=== PATIENT | male | born 1980 | race Caucasian/White ===

== ENCOUNTER 2016-10-28 01:33 | Emergency (ER) | payer OTHER ==
[~2016-10-28] VITALS: Ht 185.4 cm; Wt 90.7 kg
--- NOTE | 2016-10-28 01:55 | ED PSYCHIATRIC COMPLAINT ---
See Addendum History of Present Illness General Chief Complaint: Psychiatric Related Complaint Stated Complaint: +SI Source: patient Exam Limitations: no limitations Vital Signs & Intake/Output Vital Signs & Intake/Output Vital Signs Date Time Temp Pulse Resp B/P Pulse O2 O2 Flow FiO2 Ox Delivery Rate 10/28 1639 97.0 74 18 114/56 95 Room Air 10/28 1347 98.2 64 18 132/60 97 Room Air 10/28 1011 97.3 67 18 133/58 97 Room Air 10/28 0606 96.9 76 20 108/57 95 Room Air 10/28 0215 Room Air 10/28 0200 98.2 84 18 131/71 97 Room Air Allergies Coded Allergies: No Known Allergies (10/28/16) Reconcile Medications Buspirone HCl 15 MG TABLET 1 TAB PO BID ANXIETY (Reported) Disulfiram (Antabuse) 250 MG TABLET 2 TAB PO QAM ETOH (Reported) Paroxetine HCl (Paxil) 40 MG TABLET 1 TAB PO DAILY ANTIDEPRESSANT (Reported) Triage Nurses Notes Reviewed? yes Onset: Gradual Duration: week(s):, waxing and waning Timing: recent history Severity: moderate, severe Associated Symptoms: anxiety HPI: 36-year-old gentleman history of depression presents with suicidality. He states that he is hopeless and no longer wants to live. He states that he has been doing various drugs over the past several weeks. He does not have a plan. He denies seizures hallucinations or homicidality. He states that he is otherwise well. (MAGDALENA DALEY,LAURA Bae) Past History Travel History Traveled to [place] past 21 day No Medical History Any Pertinent Medical History? see below for history Psychiatric: depression Surgical History Surgical History: none Family History Hx Contributory? No (LAURA NICHOLS MD) Review of Systems Review of Systems Constitutional: Reports: no symptoms. EENTM: Reports: no symptoms. Respiratory: Reports: no symptoms. Cardiovascular: Reports: no symptoms. GI: Reports: no symptoms. Genitourinary: Reports: no symptoms. Musculoskeletal: Reports: no symptoms. Skin: Reports: no symptoms. Neurological/Psychological: Reports: no symptoms. Hematologic/Endocrine: Reports: no symptoms. Immunologic/Allergic: Reports: no symptoms. All Other Systems: Reviewed and Negative (LAURA NICHOLS MD) Physical Exam Physical Exam General Appearance: well developed/nourished, mild distress Head: atraumatic Eyes: Bilateral: PERRL, EOMI. Ears, Nose, Throat: normal pharynx, normal ENT inspection, hearing grossly normal Neck: normal inspection, supple Respiratory: normal breath sounds Cardiovascular: regular rate/rhythm Gastrointestinal: soft, non-tender Extremities: normal range of motion Neurological/Psychiatric: no motor/sensory deficits, awake, anxious, flat Appearance/Memory/Insight: appropriate insight, disheveled Behavoir/Eye Contact/Speech: avoids eye contact, belligerent, cooperative Thoughts/Hallucinations: normal thought pattern, no apparent hallucination Skin: intact, normal color, warm/dry SAD PERSONS SAD PERSONS Response Value Male Sex? yes 1 Depression/Hopelessness? yes 2 Excessive Ethanol/Drug Use? yes 1 Rational Thinking Loss? yes 2 Single//? yes 1 Social Support? has no support 1 Total 8 SAD PERSONS Done? yes (MAGDALENA DALEY,LAURA Bae) Progress Differential Diagnosis: impression versus hallucination versus drug abuse versus other. Plan of Care: Orders Procedure Date/time Status Regular Diet 10/28 B Active Admit to inpatient psych 10/28 181 Active EKG 10/28 043 Active Continuous Observation Monitor 10/28 154 Active URINE DRUG SCREEN FOR ER ONLY 10/28 154 Complete ETHANOL 10/28 154 Complete COMPREHENSIVE METABOLIC PANEL 10/28 154 Complete CBC WITHOUT DIFFERENTIAL 10/28 154 Complete ED CRISIS PSYCH CONSULT 10/28 154 Active Laboratory Tests 10/28/16 0209: Urine Opiates Screen < 100.00, Methadone Screen > 735 H, Barbiturate Screen < 60, Ur Phencyclidine Scrn < 6.00, Amphetamines Screen < 100, U Benzodiazepines Scrn > 800 H, Urine Cocaine Screen > 1000 H, Urine Cannabis Screen < 5.00 10/28/16 0204: Anion Gap 11, Estimated GFR > 60, BUN/Creatinine Ratio 12.5, Glucose 82, Calcium 9.3, Total Bilirubin 0.6, AST 41, ALT 60, Alkaline Phosphatase 86, Total Protein 7.4, Albumin 4.4, Globulin 3.0, Albumin/Globulin Ratio 1.5, CBC w Diff NO MAN DIFF REQ, RBC 4.14 L, MCV 92.6, MCH 31.2 H, RDW 13.6, MPV 6.9 L, Gran % 55.8, Lymphocytes % 26.2, Monocytes % 15.0 H, Eosinophils % 2.3, Basophils % 0.7, Absolute Granulocytes 4.3, Absolute Lymphocytes 2.0, Absolute Monocytes 1.1 H, Absolute Eosinophils 0.2, Absolute Basophils 0.1, PUBS MCHC 33.7, Serum Alcohol 71.0 Initial ED EKG: normal axis, normal intervals, normal p-waves, normal QRS complex, normal sinus rhythm Hand-Off Endorsed To: YUVAL HEART MD Endorsed Time: 0700 Pending: consult (LAURA NICHOLS MD) Departure Departure Disposition: STILL A PATIENT Condition: Stable Clinical Impression Primary Impression: Polysubstance abuse Secondary Impressions: Depression Referrals: PATIENT HAS NO PRIMARY CARE DR (PCP/Family) Departure Forms: Customer Survey General Discharge Information (MAGDALENA DALEY,LAURA Bae) Psych Admission Note Psychiatric Admission: I have seen and evaluated GABRIELLE LOOMIS. I have also reviewed all the pertinent lab results and diagnostic results. GABRIELLE LOOMIS will be admitted to our inpatient Psychiatric unit for treatment and care. (YUVAL HEART MD)
[2016-10-28 02:12] LABS: ABSOLUTE BASOPHIL COUNT 0.1 /CUMM (0.0-0.2); ABSOLUTE EOSINOPHIL COUNT 0.2 /CUMM (0.0-0.7); ABSOLUTE GRANULOCYTE CT 4.3 /CUMM (1.4-6.5); ABSOLUTE MONOCYTE COUNT 1.1 /CUMM (0.10-0.60); BASOPHIL % 0.7 % (0.0-2.0); EOSINOPHIL % 2.3 % (0-5); GRANULOCYTE % 55.8 % (42.2-75.2); HEMATOCRIT 38.4 % (42-52); MEAN CORPUSCULAR HGB 31.2 PG (27.0-31.0); MEAN CORPUSCULAR HGB CONC 33.7 G/DL (33.0-37.0); MEAN CORPUSCULAR VOLUME 92.6 FL (80.0-94.0); MEAN PLATELET VOLUME 6.9 FL (7.4-10.4); PLATELET COUNT 265 /CUMM (130-400); RBC DISTRIBUTION WIDTH 13.6 % (11.5-14.5); RED BLOOD CELL CT 4.14 /CUMM (4.70-6.10); WHITE BLOOD CELL COUNT 7.6 /CUMM (4.8-10.8)
[2016-10-28] MEDS ORDERED: BUSPIRONE HCL15 M1 PO (02:42)
[2016-10-28] MEDS ORDERED: PAXIL40 M1 PO (02:44)
[2016-10-28] MEDS ORDERED: ANTABUSE250 M1 PO (02:44)
--- NOTE | 2016-10-28 17:42 | ED PSYCH CRISIS CONSULTATION ---
Crisis Consult Basic Assessment Date of Consult: 10/28/16 Responsible Person/Accompanied By: Patient self presented to ED Insurance Authorization: Insurance #1: Insurance name: ELLI CAMARENA Phone number: Policy number: [id number] Group number: Authorization number: ED Provider: Patient's ED Provider: MAGDALENA DALEY,VAN Bae Primary Care Physician: Patient's PCP: PATIENT HAS NO PRIMARY CARE DR PCP's Phone Number: Current Psychiatrist: [facility] Chief Complaint: Psychiatric Related Complaint Patient's Quote: " I need help." Present Illness: Patient is a 36 year old single male who self presented to ED due to thoughts of hurting himself. Patient initally reported suicidal ideation due to feeling hopeless about his current situation. Patient is currently homeless and has been using alcohol, cocaine and PCP daily since discharging from [facility] 15 days ago. Patient recanted his suicidal comments after he was made aware that his girlfriend, who is also in the ED, was being discharged. Patient stated that he knew what to say to get admitted and really has no plans to hurt himself but wants to stop using drugs. He reports that he is safe to discharge and wants to be with his girlfriend at this time. He reports one psych hospitalization at [facility] in 2003. He reports being prescribed Paxil and Buspar currently from [facility] when he was residing at [facility]. 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 Patient was notified that we would be contacting [facility] to inform them of his UDS results in ED. Patient's Address: [address] [place] [address] Other Phone Number: Who Do You Live With? Patient/Self Family/Informants Interviewed: no family/collateral ID'd Allergies - Coded Allergies: No Known Allergies (10/28/16) Current Medications - Scheduled Medications Buspirone HCl 15 MG TABLET 1 TAB PO BID ANXIETY (Reported) Entered as Reported by CHRISTIAN REYNOLDS on 10/28/16 0242 Disulfiram (Antabuse) 250 MG TABLET 2 TAB PO QAM ETOH (Reported) Entered as Reported by CHRISTIAN REYNOLDS on 10/28/16243 Paroxetine HCl (Paxil) 40 MG TABLET 1 TAB PO DAILY ANTIDEPRESSANT (Reported) Entered as Reported by CHRISTIAN REYNOLDS on 10/28/16243 Laboratory Results: Laboratory Tests 10/28/16 0209: Urine Opiates Screen < 100.00, Methadone Screen > 735 H, Barbiturate Screen < 60, Ur Phencyclidine Scrn < 6.00, Amphetamines Screen < 100, U Benzodiazepines Scrn > 800 H, Urine Cocaine Screen > 1000 H, Urine Cannabis Screen < 5.00 10/28/16203: Anion Gap 11, Estimated GFR > 60, BUN/Creatinine Ratio 12.5, Glucose 82, Calcium 9.3, Total Bilirubin 0.6, AST 41, ALT 60, Alkaline Phosphatase 86, Total Protein 7.4, Albumin 4.4, Globulin 3.0, Albumin/Globulin Ratio 1.5, CBC w Diff NO MAN DIFF REQ, RBC 4.14 L, MCV 92.6, MCH 31.2 H, RDW 13.6, MPV 6.9 L, Gran % 55.8, Lymphocytes % 26.2, Monocytes % 15.0 H, Eosinophils % 2.3, Basophils % 0.7, Absolute Granulocytes 4.3, Absolute Lymphocytes 2.0, Absolute Monocytes 1.1 H, Absolute Eosinophils 0.2, Absolute Basophils 0.1, PUBS MCHC 33.7, Serum Alcohol 71.0 Past History Past Medical History Neurological: NONE EENT: NONE Cardiovascular: NONE Respiratory: NONE Gastrointestinal: NONE Hepatic: NONE Renal: NONE Musculoskeletal: NONE Psychiatric: depression Endocrine: NONE Blood Disorders: NONE Cancer(s): NONE RN DELIVERY/Reproductive: NONE Past Surgical History Surgical History: 1 Psychosocial History Strengths/Capabilities: n/a Physical Limitations (Interventions): n/a Psychiatric Treatment History Psych Treatment Psychiatric Treatment Yes Inpatient Treatment Yes Outpatient Treatment Yes Location of Treatment [facility] Reason for Treatment Bipolar d/o Dates of Treatment 2003 Response to Treatment Poor Diagnosis by History: Bipolar d/o Substance Use/Abuse History Drug Use/Abuse 1 Substances Used/Abused Yes Substance Used/Abused Alcohol First Use age 14 Last Used Yesterday How much used/taken 24 beers/day How often daily For how long 15 days Route of use oral Drug Use/Abuse 2 Substances Used/Abused Yes Substance Used/Abused Crack Cocaine First Use unknown Last Used yesterday How much used/taken $100/day How often daily For how long past 15 days Route of use inhalation Drug Use/Abuse 3 Substances Used/Abused Yes Substance Used/Abused Other (list in comments) (PCP) First Use unknown Last Used unknown How much used/taken $20 every 3 days How often every 3 days For how long 15 days Route of use smoke Substance Abuse Treatment Substance Abuse Treatment Past Substance Abuse [place] Yes Inpatient Treatment Yes Outpatient Treatment Yes Location of Treatment Unknown, did not clarify Reason for Treatment polysubstance abuse Dates of Treatment unknown Response to Treatment poor Current Mental Status Mental Status Orientation: Person, Place, Situation Affect: Anxious, Angry, Sad Speech: WNL Neuro-vegetative: Appetite Decreased, Concentration Poor, Energy Decreased, Loss of Interest, Sleep Disturbance Appearance Appearance- Dress/Hygiene: In hospital issued scrubs, easy to engage in conversation, normal eye contact Behaviors Thought Process: WNL Thought Content: WNL Memory: WNL Insight: Poor SI/HI Risk Assessment Past Suicidal Ideation/Attempts Yes Current Suicidal Ideation/Att No Past Homicidal Ideation/Att: No Current Homicidal Ideation/Attempts No Degree of Intent: Thoughts/No Intent Gravely Disabled: Poor Impulse Control, Poor Judgment Risk Factors: high anxiety/distress, SA/MH hospitalized, substance abuse, poor impulse control, male Lethality Ratin PTSD Checklist PTSD Done? patient declined ED Management Sitter: Yes Restraints: No DSM5/PS Stressors/Medical Prob Diagnosis' (DSM 5, Stressors, Medical): Unspecified bipolar d/o F31.9; alcohol use d/o, severe F10.20; stimulant use d/o , severe F14.20; opioid use d/o, severe, on maintenance F11.20 Current GAF: 40 Departure Disposition Psych Medical Clearance Date: 10/28/16 Medically Cleared at: 1710 Time Started: 1709 Time Ended: 1814 Psychiatrist Consulted: Van Prado MD Date Disposition Established: 10/28/16 Time Disposition Established: 1834 Plan for Disposition - Modality: Residential rehab Facility: Patient to Arrange Rationale for Disposition: Denies suicidial ideation, initially presented because wanted to be admitted for substance abuse treatment and to satisfy legal requirements. Patient adamant about leaving and being with his girlfriend, able to contract for safety and plans to follow up with residential rehab. Referrals PATIENT HAS NO PRIMARY CARE DR (PCP/Family)
[2016-10-28 18:40] VITALS: BP 122/84
== END 2016-10-28 18:42 ==
LOC: ERH 01:33
PROVIDERS: Pediatrics
DX: F19.10 Other psychoactive substance abuse, uncomplicated (principal); F32.9 Major depressive disorder, single episode, unspecified
CPT/HCPCS: 80307; 93005; 93010; G0463; G0480; J1200; J1630

== ENCOUNTER 2016-11-26 02:03 | Inpatient (IN) | payer OTHER ==
[~2016-11-26] VITALS: Ht 185.4 cm; Wt 95.3 kg
[~2016-11-26 02:03] MED LIST: ANTABUSE250 M1 PO; BUSPIRONE HCL15 M1 PO; PAXIL40 M1 PO
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
[2016-11-26 02:58] LABS: ABSOLUTE BASOPHIL COUNT 0.2 /CUMM (0.0-0.2); ABSOLUTE EOSINOPHIL COUNT 0.3 /CUMM (0.0-0.7); ABSOLUTE GRANULOCYTE CT 4.6 /CUMM (1.4-6.5); ABSOLUTE LYMPH COUNT 3.8 /CUMM (1.2-3.4); ABSOLUTE MONOCYTE COUNT 0.5 /CUMM (0.10-0.60); BASOPHIL % 1.9 % (0.0-2.0); EOSINOPHIL % 3.3 % (0-5); HEMATOCRIT 43.3 % (42-52); MEAN CORPUSCULAR HGB 31.4 PG (27.0-31.0); MEAN CORPUSCULAR HGB CONC 33.9 G/DL (33.0-37.0); MEAN CORPUSCULAR VOLUME 92.8 FL (80.0-94.0); MEAN PLATELET VOLUME 7.6 FL (7.4-10.4); PLATELET COUNT 301 /CUMM (130-400); RED BLOOD CELL CT 4.67 /CUMM (4.70-6.10); WHITE BLOOD CELL COUNT 9.5 /CUMM (4.8-10.8)
--- NOTE | 2016-11-26 14:34 | ED PSYCH CRISIS CONSULTATION ---
Crisis Consult Basic Assessment Date of Consult: 11/26/16 Responsible Person/Accompanied By: Self Insurance Authorization: Insurance #1: Insurance name: ELLI CAMARENA Phone number: Policy number: [id number] Group number: Authorization number: ED Provider: Patient's ED Provider: JORGE ALBERTO JOSUE MD Primary Care Physician: Patient's PCP: PATIENT HAS NO PRIMARY CARE DR PCP's Phone Number: Current Psychiatrist: No current-Last prescribed meds by [place] Chief Complaint: Psychiatric Related Complaint Patient's Quote: "I am extremely suicidal every day thepast month." Present Illness: The patient is a 36 year old single male presenting to the ED with depression and sucidal ideation with a plan. The patient presented as tired, withdrawn, depressed, hopeless and helpless. The patient reports having suicidal ideation with a plan of "driving a car off the same bridge my friend did that committed suicide." The patient reports a prior suicide attempt when he was 17 years old by taking a bottle of aspirin. The patient reports depressed mood, regular sleep, decreased appetite (1 meal per day) and low motivation and energy. 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 The patient denies current homicidal ideation , auditory hallucinations and visual hallucinations. The patient states that he does become violent when he uses PCP and was arrested for assaulting a hospital security vehicle patrol officer when under the influence of PCP approximately two weeks ago. The patient reports his triggers as being two of his best friends committing suicide the last couple of years, his father passing away two days before this past Thanksgiving and being homeless as he was recently evicted from his sober house yesterday for relapsing. The patient reports a prior inpatient psychiatric hospitalization at [facility] in 2001 for depression and suicidal ideation. He reports a long history of polysubstance abuse with current regular use of alcohol, cocaine and benzodiazepines. He reports recently being discharged from [facility] for alcohol, benzodiazepine and methadone detox a week ago and relapsing shortly thereafter. The patient is at acute risk to self requiring inpatient hospitalization. This report prepared by AIMEE T[employer]ver[employer] Glazing Machine Operator and signed off by Kathleen Archuleta Patient's Address: [address] [place] [address] Other Phone Number: Who Do You Live With? Patient/Self Family/Informants Interviewed: no family/collateral ID'd Allergies - Coded Allergies: meperidine (From DEMEROL) (Mild, FLUSHING 11/26/16) Current Medications - Scheduled Medications Buspirone HCl 15 MG TABLET 1 TAB PO BID ANXIETY (Reported) Entered as Reported by CHRISTIAN REYNOLDS on 10/28/16 0242 Disulfiram (Antabuse) 250 MG TABLET 2 TAB PO QAM ETOH (Reported) Entered as Reported by CHRISTIAN REYNOLDS on 10/28/16 0244 Paroxetine HCl (Paxil) 40 MG TABLET 1 TAB PO DAILY ANTIDEPRESSANT (Reported) Entered as Reported by CHRISTIAN REYNOLDS on 10/28/16 0244 Laboratory Results: Laboratory Tests 11/26/16 0309: Urine Opiates Screen < 100.00, Methadone Screen > 735 H, Barbiturate Screen 64, Ur Phencyclidine Scrn < 6.00, Amphetamines Screen 338, U Benzodiazepines Scrn > 800 H, Urine Cocaine Screen > 1000 H, Urine Cannabis Screen < 5.00 11/26/16 0246: Anion Gap 8, Estimated GFR > 60, BUN/Creatinine Ratio 11.3, Glucose 106 H, Calcium 9.8, Total Bilirubin 0.6, AST 73 H, ALT 48, Alkaline Phosphatase 71, Total Protein 8.0, Albumin 4.9, Globulin 3.1, Albumin/Globulin Ratio 1.6, CBC w Diff MAN DIFF ORDERED, RBC 4.67 L, MCV 92.8, MCH 31.4 H, RDW 15.0 H, MPV 7.6, Gran % 49.0, Lymphocytes % 40.5, Monocytes % 5.3, Eosinophils % 3.3, Basophils % 1.9, Absolute Granulocytes 4.6, Segmented Neutrophils 45, Absolute Lymphocytes 3.8 H, Lymphocytes 50, Monocytes 2, Absolute Monocytes 0.5, Eosinophils 3, Absolute Eosinophils 0.3, Absolute Basophils 0.2, Platelet Estimate ADEQUATE, Polychromasia 1+, Ovalocytes FEW, PUBS MCHC 33.9, Fld Total RBCs Counted 100, Serum Alcohol 164.0 Past History Past Medical History Neurological: NONE EENT: NONE Cardiovascular: NONE Respiratory: NONE Gastrointestinal: NONE Hepatic: NONE Renal: NONE Musculoskeletal: NONE Psychiatric: depression Endocrine: NONE Blood Disorders: NONE Cancer(s): NONE FIELD CROP GROWER/Reproductive: NONE Past Surgical History Surgical History: 1 Psychosocial History Strengths/Capabilities: n/a Physical Limitations (Interventions): n/a Psychiatric Treatment History Psych Treatment Psychiatric Treatment Yes Inpatient Treatment Yes Outpatient Treatment Yes [facility] Reason for Treatment Depression, polysubstance abuse Dates of Treatment [facility]-2001; [facility]-1 month ago Response to Treatment Relapse Diagnosis by History: Depression, polysubstance abuse Substance Use/Abuse History Drug Use/Abuse 1 Substances Used/Abused Yes Substance Used/Abused Alcohol First Use 14 years old Last Used today How much used/taken 15 beers How often daily For how long Drinking alcohol since age 14 Route of use Oral Drug Use/Abuse 2 Substances Used/Abused Yes Substance Used/Abused Crack Cocaine First Use 19 years old Last Used Yesterday How much used/taken $100 How often Every other day For how long Since age 19 Route of use Inhale (Smoke) Drug Use/Abuse 3 Substances Used/Abused Yes Substance Used/Abused Benzodiazepines First Use 29 years old Last Used Today How much used/taken 6mg How often daily For how long since age 29 Route of use Oral Substance Abuse Treatment Substance Abuse Treatment Past Substance Abuse TX Yes Inpatient Treatment Yes Outpatient Treatment Yes Location of Treatment [facility] & [facility] Reason for Treatment Detox Dates of Treatment [facility]-1 month ago; [facility]-1 week ago Response to Treatment Patient has relapsed with alcohol, cocaine and benzodiazepines. Patient reports occassional use of PCP which cuases him to be violent. Comments: None Current Mental Status Mental Status Orientation: Person, Place, Situation Affect: Depressed, Flat, Hopeless Speech: WNL Neuro-vegetative: Appetite Decreased, Energy Decreased, Helpless, Loss of Interest Appearance Appearance- Dress/Hygiene: Patient was dressed in hospital scrubs and disheveled. Patient was tired during course of the assessment finding it difficult to keep his eyes open at times. Patient had two scratches on his cheek. Behaviors Thought Process: WNL Thought Content: WNL Memory: WNL Insight: Poor SI/HI Risk Assessment Past Suicidal Ideation/Attempts Yes (Reports SI daily past month ) Current Suicidal Ideation/Att Yes (Pt. repots current SI w/plan) Past Homicidal Ideation/Att: Yes (Pt. reports violent w/PCP) Current Homicidal Ideation/Attempts No (Pt. denies current HI) Degree of Intent: Plan, States Intent, Pt. reports current SI with plan to drive car off of same bridge his friend did who committed suicide Danger To: Self Gravely Disabled: Poor Impulse Control, Poor Judgment Risk Factors: high anxiety/distress Lethality Ratin PTSD Checklist PTSD Done? patient declined (Pt. denies hx of trauma) ED Management Sitter: Yes Restraints: No DSM5/PS Stressors/Medical Prob Diagnosis' (DSM 5, Stressors, Medical): F32.9 Unspecified Depressive Disorder F11.20 Opioid Use Disorder, Severe F10.20 Alcohol use disorder, Severe F13.20 Sedative, Hypnotic or Anxiolytic Use Disorder, Severe F14.20 Stimulant Use Disorder, Cocaine, severe Current GAF: 25 Comments: None Departure Disposition Psych Medical Clearance Date: 11/26/16 Medically Cleared at: 1410 Time Started: 1410 Time Ended: 1510 Psychiatrist Consulted: Michelle DALEY,Edward Date Disposition Established: 11/26/16 Time Disposition Established: 1529 Plan for Disposition - Modality: Inpatient Psychiatry Facility: [facility] Rationale for Disposition: Patient reports current depression and suicidal ideation, with plan to drive a car off a bridge. The patient has history of polysubstance abuse with recent relapse. Dr. Martinez finds the patient is at acute risk to self and requires inpatient admission for suicidal ideation. Type of IP Admission: Voluntary Additional Instructions: None Referrals PATIENT HAS NO PRIMARY CARE DR (PCP/Family)
--- NOTE | 2016-11-26 16:06 | IP CRISIS DIAG ASSESS PSYCH ---
Diagnostic Assessment Basic Assessment Insurance Authorization: Insurance #1: Insurance name: ELLI CAMARENA Policy number: [id number] Authorization number: [id number] Spoke kezia Dockery - 4 days 11/26/16 to 11/29/16 with review due on 11/30/16 Primary Care Physician: Patient's PCP: PATIENT HAS NO PRIMARY CARE DR PCP's Phone Number: Patient's Quote: "I am extremely suicidal every day thepast month." Present Illness: The patient is a 36 year old single male presenting to the ED with depression and suicidal ideation with a plan. The patient presented as tired, withdrawn, depressed, hopeless and helpless. The patient reports having suicidal ideation with a plan of "driving a car off the same bridge my friend did that committed suicide." The patient reports a prior suicide attempt when he was 17 years old by taking a bottle of aspirin. The patient reports depressed mood, regular sleep, decreased appetite (1 meal per day) and low motivation and energy. 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 The patient denies current homicidal ideation , auditory hallucinations and visual hallucinations. The patient states that he does become violent when he uses PCP and was arrested for assaulting a hospital retail security professional when under the influence of PCP approximately two weeks ago. The patient reports his triggers as being two of his best friends committing suicide the last couple of years, his father passing away two days before this past Thanksgiving and being homeless as he was recently evicted from his sober house yesterday for relapsing. The patient reports a prior inpatient psychiatric hospitalization at [facility] in 2001 for depression and suicidal ideation. He reports a long history of polysubstance abuse with current regular use of alcohol, cocaine and benzodiazepines. He reports recently being discharged from [facility] for alcohol, benzodiazepine and methadone detox a week ago and relapsing shortly thereafter. The patient is at acute risk to self requiring inpatient hospitalization. This report prepared by AIMEE [employer] Consult[employer] Analyst and signed off by Kathleen Archuleta Patient's Address: [address] [place] [address] Other Phone Number: Who Do You Live With? Patient/Self Feel Safe Where You Live? No (Pt. recently homeless) Feel Safe in Your Relationship Yes If No, Please Elaborate: N/A Marital Status: single Do You Have Children? No Ages? N/A Primary Language? Czech Language(s) Spoken At Home: Czech Family/Informants Interviewed: pt unable to participate (Pt. denies any collateral), no family/collateral ID'd Allergies - Coded Allergies: meperidine (From DEMEROL) (Mild, FLUSHING 11/26/16) Current Medications - Scheduled Medications Buspirone HCl 15 MG TABLET 1 TAB PO BID ANXIETY (Reported) Entered as Reported by CHRISTIAN REYNOLDS on 10/28/16 0242 Disulfiram (Antabuse) 250 MG TABLET 2 TAB PO QAM ETOH (Reported) Entered as Reported by CHRISTIAN REYNOLDS on 10/28/16 0244 Paroxetine HCl (Paxil) 40 MG TABLET 1 TAB PO DAILY ANTIDEPRESSANT (Reported) Entered as Reported by CHRISTIAN REYNOLDS on 10/28/16 0244 Consequences of Psych Med Use: Patient last prescribed Paxil & Buspar by [facility] a month ago and running out of meds. Patient reports current SI and worsening depression. Comment: None Lab Results: Laboratory Tests 11/26/16 0309: Urine Opiates Screen < 100.00, Methadone Screen > 735 H, Barbiturate Screen 64, Ur Phencyclidine Scrn < 6.00, Amphetamines Screen 338, U Benzodiazepines Scrn > 800 H, Urine Cocaine Screen > 1000 H, Urine Cannabis Screen < 5.00 11/26/16 0246: Anion Gap 8, Estimated GFR > 60, BUN/Creatinine Ratio 11.3, Glucose 106 H, Calcium 9.8, Total Bilirubin 0.6, AST 73 H, ALT 48, Alkaline Phosphatase 71, Total Protein 8.0, Albumin 4.9, Globulin 3.1, Albumin/Globulin Ratio 1.6, CBC w Diff MAN DIFF ORDERED, RBC 4.67 L, MCV 92.8, MCH 31.4 H, RDW 15.0 H, MPV 7.6, Gran % 49.0, Lymphocytes % 40.5, Monocytes % 5.3, Eosinophils % 3.3, Basophils % 1.9, Absolute Granulocytes 4.6, Segmented Neutrophils 45, Absolute Lymphocytes 3.8 H, Lymphocytes 50, Monocytes 2, Absolute Monocytes 0.5, Eosinophils 3, Absolute Eosinophils 0.3, Absolute Basophils 0.2, Platelet Estimate ADEQUATE, Polychromasia 1+, Ovalocytes FEW, PUBS MCHC 33.9, Fld Total RBCs Counted 100, Serum Alcohol 164.0 Toxicology Screen Completed? Yes Results: positive Symptoms of Use: Patient has relapsed and reports daily use of alcohol, crack cocaine and benzodiazepines. Past History Past Surgical History Surgical History none Abuse/Trauma History Trauma History/Current Trauma: Denies History of Trauma/Abuse Treatment? No Abuse/Trauma Treatment: n/A Legal History Current Legal Status: on probation, Violation of probation-next court date Have you ever been arrested? 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 Physical Limitations (Interventions): None Psychiatric Treatment History Psych Treatment Psychiatric Treatment Yes Inpatient Treatment Yes Outpatient Treatment Yes Location of Treatment [facility] Reason for Treatment Depression, polysubstance abuse Dates of Treatment [facility]-2001; [facility]-1 month ago Response to Treatment Relapse Diagnosis by History: Depression, polysubstance abuse Risk Factors: high anxiety/distress, history of Violence, SA/ hospitalized, substance abuse, isolate/no social support, poor impulse control, lack of outcome concern, lives alone, male, limited support Substance Use/Abuse History Drug Use/Abuse minimum 12mo Hx 1 Substances Used/Abused Yes Substance Used/Abused Benzodiazepines First Use 29 years old Last Used Today How much used/taken 6mg How often daily For how long since age 29 Route of use Oral Drug Use/Abuse minimum 12mo Hx 2 Substances Used/Abused Yes Substance Used/Abused Alcohol First Use 14 years old Last Used Today How much used/taken 15 beers How often Daily For how long "On and off" since age 14 Route of use Oral Drug Use/Abuse minimum 12mo Hx 3 Substances Used/Abused Yes Substance Used/Abused Crack Cocaine First Use 19 years old Last Used Yesterday How much used/taken $100 worth How often every other day For how long Since age 19 Route of use Inhale Substance Abuse Treatment Substance Abuse Treatment Past Substance Abuse TX Yes Inpatient Treatment Yes Outpatient Treatment Yes Location of Treatment [facility] Reason for Treatment Detox Dates of Treatment [facility] [place]-1 month ago; [facility]-1 week ago Response to Treatment Patient has relapsed with alcohol, cocaine and benzodiazepines. Patient reports occassional use of PCP which causes him to be violent. Comments: None Sexual History Sexually Active Yes # of partners 1 Sexual Orientation Heterosexual Use of Protection No Sexual Concerns: None noted Education History Highest Level of Education: high school/GED Preferred Learning Style: visual Current Mental Status Mental Status Orientation: Person, Place, Situation Affect: Depressed, Flat, Hopeless Speech: WNL Neuro-vegetative: Appetite Decreased, Energy Decreased, Helpless, Loss of Interest Appearance Appearance- Dress/Hygiene: Patient was dressed in hospital scrubs and disheveled. Patient was tired during course of the assessment finding it difficult to keep his eyes open at times. Patient had two scratches on his cheek. Behaviors Thought Process: WNL Thought Content: WNL Memory: WNL Insight: Poor SI/HI Risk Assessment - Minimum 6mo History- Past Suicidal Ideation/Attempts Yes (Reports SI daily past month ) Current Suicidal Ideation/Att Yes (Pt. reports current SI w/plan) Past Homicidal Ideation/Att: Yes (Pt. reports violent w/PCP) Current Homicidal Ideation/Attempts No (Pt. denies current HI) Degree of Intent: Plan, States Intent, Pt. reports current SI with plan to drive car off of same bridge his friend did who committed suicide Danger To: Self Gravely Disabled: Poor Impulse Control, Poor Judgment Risk Factors: high anxiety/distress Lethality Ratin Needs/Init TX Plan/Goals: Patient needs medication evaluation to stabilize mood, depression and suicidal ideation. Patient needs medication management to manage withdrawal symptoms from polysubstance abuse. Comprehensive psychiatric assessment, psychosocial assessment, individual and group therapy, and family meeting if possible. AUDIT-C Questionnaire: AUDIT-C Questionnaire: Response Value ETOH use in the past year 4 or more per week 4 # drinks typical/day 10 or more 4 6 or > drinks per occasion Daily/Almost Daily 4 Total 12 DSM5/PS Stressors/Medical Prob Diagnosis' (DSM 5, Stressors, Medical): F32.9 Unspecified Depressive Disorder F11.20 Opioid Use Disorder, Severe F10.20 Alcohol use disorder, Severe F13.20 Sedative, Hypnotic or Anxiolytic Use Disorder, Severe F14.20 Stimulant Use Disorder, Cocaine, severe Current GAF: 25 Comments: None
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
[2016-11-26] MEDS ORDERED: METHADONE HCL10 M1 PO (19:35)
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
[2016-11-27 07:57] VITALS: BP 120/73
[2016-11-27 07:58] VITALS: BP 120/73
[2016-11-27 12:37] VITALS: BP 111/62
[2016-11-27 12:44] VITALS: BP 111/62
--- NOTE | 2016-11-27 17:55 | CPS MD/APRN INITIAL ASSE PSYCH ---
Psychiatric Admission Equity Trader's Note Reviewed: Yes Patient Seen and Examined: Yes Identifying Information: 36-year-old, unemployed, on domiciled man with history of cocaine, benzodiazepine, opiate use disorders as well as unspecified mood disorder Chief Complaint: "I gotta get out of here " Reaction to Hospitalization: Initially accepting and asking for hospitalization. Today asks for discharge History of Present Illness Onset of Illness: Long-standing history of chronic substance abuse and cooccurring mood problems Circumstances Leading to Admission: Loss of housing, worsening mood, relapse on substances, suicidal ideation, Problem(s) Justifying Need for Admission: Worsening mood, suicidal ideation in context of substance relapse Past Psychiatric History Past Diagnosis(es)- if any: Unspecified depressive disorder Cocaine, benzodiazepine, opiate use disorders Past Precipitating Factors- if any: Psychosocial stressors, substance use - Include inpatient and outpatient treatment Treatment History: Inpatient and outpatient treatment. [facility] inpatient treatment 2001. Substance use treatment at [facility]. History of Suicide Attempts or Gestures Yes, by pill overdose Substance Abuse History: Chronic use of cocaine, benzodiazepines, opiates. Currently on methadone. Recently detoxed from benzodiazepines at [facility] with immediate relapse upon discharge. 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 Legal: Yes. Currently on probation, upcoming court date for violation of probation Healthly Behaviors Screening Tobacco Screening Tobacco Use from ED Docu: Current Daily Use Daily Tobacco Use Amount/Type: => 5 Cigarettes daily - If tobacco counseling indicated - the following topics are required. - #1 Recognizing dangerous situations. - #2 Coping Skills. - #3 Basic information about quitting. Status of Tobacco Cessation Counseling: #1, #2 AND #3 Completed Cessation Med Status: Nicotine Patch Ordered Alcohol Screening - ETOH screen POS if BAL >=80 or Audit-C>= M4/F3 Audit-C Score from Diag Assess: 12 Blood Alcohol Level: Laboratory Tests 11/26 0246 Toxicology Serum Alcohol (<10 MG/DL) 164.0 Alcohol Use Screening Results: Pos per Audit C &/or BAL - If ETOH counseling indicated - the following topics are required. - #1 Express concern about the patient's - drinking at unhealthy levels, include informing - of national norms for moderate drinking: - men <= 14 drinks/week, max 4 drinks/occasion - women <= 7 drinks/week, max 3 drinks/occasion - #2 Providing feedback, including linking alcohol to - negative physical effects (liver injury, hypertension) - negative emotional effects (relationship problems and - depression) - negative occupational consequences (reduced work - performance) - #3 Advising the patient to abstain from alcohol or - to drink below national norms for moderate drinking - (as listed above). Status of ETOH Use Counseling: #1, #2 AND #3 Completed. Metabolic Screening - Screen if on a Neuroleptic Medication - Metabolic screening should include: - Blood Pressure, BMI, Glucose or Hgb A1c, & a - Lipid profile from within the past 365 days. Metabolic Screening () Not Applicable, patient not on a neuroleptic. Patient is not chronically on a neuroleptic. He is currently on an as needed order for neuroleptic however has not required this medication. Exam and Plan Mental Status Examination Ambulation Status: Stable Appearance: Disheveled Attitude towards examiner: Guarded, irritable Psychomotor activity: Positive psychomotor agitation Behavior: Within fair behavioral control Quality of speech: Within normal limits Affect: Constricted, irritable, labile Mood: "Bad " Suicidal Ideation: Denies currently Homicidal Ideation: Denies Hallucinations: Denies Paranoid/Delusional Material: Denies Difficulties with thought organization: None Insight: Limited Judgment: Limited Orientation: Alert, oriented to person place time situation Cognition: Grossly intact Memory Function: Intact Estimate of intellectual functioning: Average to below average Assets/Strengths Patient Identified Assets/Strengths: Says he has some job prospects Impression/Plan Impression and Plan: 36-year-old man with chronic cocaine, benzodiazepine, opiate use disorders as well as chronic problems with mood presents with worsening depression positive SI in the context of psychosocial difficulties and immediate relapse upon detox - Include all active medical diagnosis that require tx DSM 5 Diagnosis(es): Cocaine use disorder Benzodiazepine use disorder Opiate use disorder, on methadone replacement Unspecified depressive disorder Rule out substance-induced depressive disorder - Initial Tx Plan for Active Psych & Medical Conditions Treatment Plan: Admit inpatient psychiatry 15 minute checks appropriate Continue methadone, Paxil, BuSpar Appropriate early intervention for violent behaviors As needed Zyprexa for agitation Monitor for improvement in mood - Factors that would help patient function - in a less restrictive setting. Factors: Improved mood, identification of protective factors, identification of outpatient treatment, remission of SI
[2016-11-27 20:18] VITALS: BP 112/59
[2016-11-27 20:24] VITALS: BP 112/59
[2016-11-28] VITALS (8 sets, daily range): BP systolic 120–129; BP diastolic 51–85
--- NOTE | 2016-11-28 06:47 | Admission Certification ---
Admission Certification Certification Statement - As attending physician, I certify that at the time of - admission, based on clinical presentation, severity of - symptoms, need for further diagnostic testing and - therapeutic interventions, and risk of adverse outcomes - without in-hospital treatment, in my clinical assessment, - this patient requires an acute hospital stay for a minimum - of two nights or longer. I have also considered psychsocial - factors such as support system, advanced age, financial - issues, cognitive issues, and failed out-patient treatments, - past re-admission history, safety of patient, and lack of - compliance as applicable. Specific rationale supporting this admission is: Depression, suicidal ideation.
--- NOTE | 2016-11-28 10:45 | CP SOUTH PROGRESS NOTE PSYCH ---
Psych (Inpt) Progress Note Progress Note Include the following elements, when applicable: Involvement in the active treatment of the patient with behavioral observations of the patient and the patient's response to the treatment. Review of the ongoing treatment process in the context of the treatment plan. Indication of how multi-disciplinary staff members are carrying out the treatment plan. Plans for future interventions and recommendations for revision of the treatment plan. Liaison with other physicians/providers. Progress Note: Chart reviewed, progress d/w nursing staff. Interviewed patient this morning. WAs sleeping prior. Today pleasant, says mood remains a bit down but denies SI/ HI. Denies medication side effects. Asked for seroquel for sleep last night which was effective. Vitals reviewed and wnl. No new labs today. MSE: pleasant, poorly groomed CM resting on hospital bed. Limited EC. Speech wnl. Mood "a bit better", affect constricted, non-labile, congruent. TP log/allyson. TC wnl. Denies SI/HI or AVH. Cognition grossly intact. I/J limited-fair. A/P: Mood and SI seem to be improving. Will check TSH tomorrow am. Continue present management.
[2016-11-29] VITALS (7 sets, daily range): BP systolic 119–136; BP diastolic 67–97
--- NOTE | 2016-11-29 14:01 | CP SOUTH PROGRESS NOTE PSYCH ---
Psych (Inpt) Progress Note Progress Note Include the following elements, when applicable: Involvement in the active treatment of the patient with behavioral observations of the patient and the patient's response to the treatment. Review of the ongoing treatment process in the context of the treatment plan. Indication of how multi-disciplinary staff members are carrying out the treatment plan. Plans for future interventions and recommendations for revision of the treatment plan. Liaison with other physicians/providers. Progress Note: [I discussed this patient's progress to date, current mental status, treatment process in the context of the treatment plan, and discharge planning with staff/ team in the daily morning inpatient team meeting. I also met with the patient myself in individual session.] S: "I'm a lot calmer with Seroquel." O: Current Medications Sig/Rip Start time Last Medication Dose Route Stop Time Status Admin Acetaminophen 500 MG Q6P PRN 11/26 2030 AC PO Al Hydroxide/Mg 30 ML Q4-6 PRN PRN 11/26 2045 AC Hydroxide PO Buspirone HCl 15 MG BID 11/26 1000 AC 11/29 PO 0807 Lorazepam 1 MG Q2 HRS NEEDED PRN 11/29 0945 AC PO Lorazepam 2 MG Q2 HRS NEEDED PRN 11/29 0945 AC PO Methadone HCl 70 MG 0800 11/27 0800 AC 11/29 PO 0808 Nicotine 2 MG Q2 HRS NEEDED PRN 11/27 1700 AC 11/29 PO 1302 Nicotine 14 MG DAILY 11/27 1656 AC 11/29 TOP 0807 Paroxetine HCl 40 MG DAILY 11/26 1000 AC 11/29 PO 0807 Quetiapine Fumarate 100 MG 2200 11/29 2200 UNVr PO Quetiapine Fumarate 50 MG Q6-PRN PRN 11/29 1415 UNVr PO Quetiapine Fumarate 50 MG Q4 HRS NEEDED PRN 11/28 0930 DC 11/29 PO 1302 Quetiapine Fumarate 50 MG AT BEDTIME NEED.. 11/27 2230 DC 11/28 PO 2132 Vital Signs Date Time Temp Pulse Resp B/P Pulse O2 O2 Flow FiO2 Ox Delivery Rate 11/29 1233 74 136/80 11/29 1230 74 136/80 11/29 0801 96.7 73 119/68 11/29 0801 96.7 73 119/68 11/29 2011 98.2 83 122/61 11/29 2007 98.2 83 122/61 11/28 1638 88 120/85 11/28 1553 58 120/85 Laboratory Tests 11/29 0613 Chemistry Triglycerides (<150 mg/dL) 103 Cholesterol (< 200 MG/DL) 148 LDL Cholesterol, Calc (65 - 129 mg/dL) 86 HDL Cholesterol (40 - 60 mg/dL) 42 Cholesterol/HDL Ratio (0.00 - 4.88 %) 4 TSH &T3 &Free T4 Intrp (0.27 - 4.20 uIU/mL) 0.776 A: Chart, progress notes, VS, CIWA, labs and medication list were reviewed. Vital signs within normal limits. TSH and lipid panel resulted wnl. Patient is a 36-year-old, unemployed, male with history of cocaine, benzodiazepine, opiate use disorders, and unspecified mood disorder. He presented to ED on 11/26/16 for depression, SI, and plan. Patient's BAL was 164 on arrival. Utox was also (+) for cocaine, benzodiazepines, and methadone (which he is prescribed). Met with patient for the first time today on CPS. Presented A&Ox4, calm, cooperative. He reported presenting to ED for help getting "clean." Reported chronic polysubstance abuse and being tired of this lifestyle. He reported expressing a suicide plan while in ED "to get admitted." He denied recent suicide attempts; reported 1 prior by overdose during his teens which resulted in inpatient psych admission. He reported most recent outpatient psych treatment was at [facility] where Paxil, MMT, and Buspar were prescribed. He denied feleing hopeless, helpless, worthless, and guilty. He denied active and passive suicidal ideation, plans and intent. Denied homicidal ideation, auditory and visual hallucinations. Reported protective factors of "my girlfriend" and "I have a job waiting for me." Denied subjective reports of alcohol withdrawal. Not scoring on CIWA x last 24 hours. VSS. He reported depression of 0/10 (10 being the worst) and anxiety of 0/10 (10 being the worst) . Denied racing thoughts over stressors including upcoming court date (12/14/16) for recent legal charges (violation of probation and assault 3rd degree) since starting prn Seroquel. Reported "ok" sleep with some night time awakening. Reported stable appetite. Speech was normal in rate, tone, volume. Mood was "calmer." Affect appeared calm and constricted. No evidence of paranoia or jia delusions. Thought process was organized, goal-directed. Thought content was appropriate. Cognition was grossly intact. Patient appears goal-oriented to pursue substance abuse treatment. He denied urges/craving to use alcohol or illicits. He reported tolerating all medications well and denied untoward medication effects. Patient was agreeable to increasing Seroquel from 50mg QHS to 100mg QHS for insomnia. Will continue prn Seroquel for anxiety/racing thoughts. P: 1. Continue monitoring patient on unit for suicidal ideation and mood. 2. Increase Seroquel from 50mg QHS to 100mg QHS for insomnia. Will continue prn Seroquel for anxiety/racing thoughts. 3. Encourage participation in milieu activities. 4. Dispo planning per primary team.
--- NOTE | 2016-11-29 16:25 | SOCIAL WORKER PROG NOTE PSYCH ---
Social Work Progress Note Progress Note CORRINE met with patient for the first time today. Patient reports a desire to leave the hospital in the near future due to finding out he has a job available. Patient found sleeping in his room most of the day and not participating in groups on the unit. Patient reports that he does not have any family and is unable to have anyone come in for a family meeting. 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 He states that he does not want them to know where he is, they seem to believe he is on vacation with his girlfriend. Patient reports that he attends methadone maintenance at [facility] and plans to follow up with outpatient treatment there. Patient appears to be minimizing his current symptoms in order to d/c the hospital. It is unclear at this moment what patients alterior motives are for discharge but patient appears to not be engaged in treatment at this time and eager to discharge in near future.
[2016-11-30] VITALS (8 sets, daily range): BP systolic 124–151; BP diastolic 66–86
--- NOTE | 2016-11-30 10:12 | SOCIAL WORKER PROG NOTE PSYCH ---
Social Work Progress Note Progress Note Pt reports he is no longer suicidal, he states its time to "separate the men from the boys" in his life. He is goal oriented, and has a plan, he wants to continue with Methadone clinic and continue to taper "10mg a week" and go back on suboxone, he also states he wants to restart antabuse. He was sober for a year and this is what helped in past. He continues to believe he can return to the sober house, he believes his girlfriend is going into snf treatment and therefore will not be a barrier to his treatment. He reports getting his job back and working will help him not use/relapse and he is open to a attending meetings when he has time. He is concerned about his pending court date 12/14/16, he would like to be present for that and advocate for himself.
--- NOTE | 2016-11-30 12:09 | CP SOUTH PROGRESS NOTE PSYCH ---
Psych (Inpt) Progress Note Progress Note Include the following elements, when applicable: Involvement in the active treatment of the patient with behavioral observations of the patient and the patient's response to the treatment. Review of the ongoing treatment process in the context of the treatment plan. Indication of how multi-disciplinary staff members are carrying out the treatment plan. Plans for future interventions and recommendations for revision of the treatment plan. Liaison with other physicians/providers. Progress Note: [I discussed this patient's progress to date, current mental status, treatment process in the context of the treatment plan, and discharge planning with staff/ team in the daily morning inpatient team meeting. 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 " O: Current Medications Sig/Rip Start time Last Medication Dose Route Stop Time Status Admin Acetaminophen 500 MG Q6P PRN 11/26 2030 AC PO Al Hydroxide/Mg 30 ML Q4-6 PRN PRN 11/26 2045 AC Hydroxide PO Buspirone HCl 15 MG BID 11/26 1000 AC 11/30 PO 0804 Gabapentin 300 MG 0800,1400,11/30 1400 AC PO Gabapentin 300 MG Q8P PRN 11/29 1630 DC 11/30 PO 0846 Lorazepam 1 MG Q2 HRS NEEDED PRN 11/29 0945 AC PO Lorazepam 2 MG Q2 HRS NEEDED PRN 11/29 0945 AC PO Methadone HCl 70 MG 0800 11/27 0800 AC 11/30 PO 0804 Nicotine 2 MG .STK-MED ONE 11/29 2118 DC PO 11/29 2119 Nicotine 2 MG .STK-MED ONE 11/29 1638 DC PO 11/29 1639 Nicotine 2 MG Q2 HRS NEEDED PRN 11/27 1700 AC 11/30 PO 0936 Nicotine 14 MG DAILY 11/27 1656 AC 11/30 TOP 0806 Paroxetine HCl 40 MG DAILY 11/26 1000 AC 11/30 PO 0847 Quetiapine Fumarate 50 MG 0800,1400 11/30 0830 DC PO Quetiapine Fumarate 50 MG Q8P PRN 11/30 0830 AC PO Quetiapine Fumarate 100 MG 2200 11/29 2200 AC 11/29 PO 2122 Quetiapine Fumarate 50 MG Q6-PRN PRN 11/29 1415 DC 11/29 PO 2250 Quetiapine Fumarate 50 MG Q4 HRS NEEDED PRN 11/28 0930 DC 11/29 PO 1302 Quetiapine Fumarate 50 MG AT BEDTIME NEED.. 11/27 2230 DC 11/28 PO 2132 Vital Signs Date Time Temp Pulse Resp B/P Pulse O2 O2 Flow FiO2 Ox Delivery Rate 11/30 0752 97.4 70 124/66 11/30 0749 97.4 70 124/66 11/30 1999 97.0 64 133/69 11/29 1933 97.0 64 133/69 11/29 1606 69 126/97 11/29 1556 69 126/67 11/29 1233 74 136/80 11/29 1230 74 136/80 A: Chart, progress notes, labs, VS, CIWA scores, and medication list were reviewed. Vital signs within normal limits. Not scoring on CIWA. No new lab results today. Seroquel 50mg Q8AM and Q2PM was started as he had been utilizing 2-3 50mg prn doses over the last couple days on unit for racing thoughts/anxiety. Met with patient 1:1 this afternoon. He presented alert and oriented to person, place, time and situation. Affect appeared calm, constricted. Mood was pleasant, cooperative. Eye contact was appropriate. Speech was normal in rate, tone and volume. He reported refusing scheduled morning Seroquel due to wanting to cut down on it for unclear reasons. Denied medication side effects; instead, he requested prn Gabapentin be changed to standing as this was effective in managing anxiety. He was agreeable to continue Seroquel 50mg prn for anxiety/ racing thoughts. Thought process was organized and goal-directed. 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 Patient was offered to sign a termination of voluntary form. Reviewed form with patient, who later declined to sign. He denied passive and active suicidal ideation, plans and intent. He continued to deny having a suicide plan while in ED; reported he stated a plan ("driving a car off the same bridge my friend did that committed suicide.") because "I knew I'd be admitted - I needed to get clean - I didn't and don't want to hurt myself." Patient also denied that any of his friends ever attempted or committed suicide. He denied homicidal ideation, auditory and visual hallucination. Denied feeling hopeless, helpless, worthless and guilty. Denied urges/cravings to use alcohol or illicits. Reported his only anxiety was in social situations; despite this he reported attending and participating in milieu groups without problem. He denied acute depressive symptoms. Reported sleeping well and having a stable appetite. Patient reported tolerating all medications well and denied untoward medication effects. Asked patient if he had any friends or family whom he would like involved in his inpatient level of care. He reported he has no one in his life except for his girlfriend who is currently hospitalized. P: 1. Continue monitoring patient on unit for safety, mood and suicidal ideation. 2. Change Gabapentin from 300mg Q8H prn to TID for anxiety. 3. Change Seroquel 50mg Q8AM and Q2PM to 50mg Q8H prn for racing thoughts. 4. Continue Seroquel 100mg QHS for insomnia. 5. Dispo planning per primary team.
--- NOTE | 2016-11-30 14:39 | SOCIAL WORKER TX PLAN PSYCH ---
Treatment Plan - Please Document: - Evidence that there is ongoing collaboration between - the patient and the interdisciplinary team, - including the patient's active participation and - responsibility for engaging in the treatment regimen, - and that the treatment plan is individualized and - relevant to the patient's conditions. - Treatment plan should reflect documentation indicating - that all active therapeutic efforts are included. Strengths/Capabilities: Patient identifies when he needs to ask for help and seek treatment. Physical Limitations (Interventions): None Patient Identified Trmt Goals: " I want to get my life on track." Discharge Plan: IOP Problem/Goals #1 Problem #1: suicidal ideation Goal (Short Term): Today I will attend 2 groups Today I will identify 2 stressors Today I will identify 2 positive supports Today I will work on recognizing 3 emotions I am feeling Goal (Grading Supervisor): Be free of suicidal thoughts/attempts Develop 3 coping skills to deal with depression Identify 3 positive support systems to call in crisis Develop a crisis plan with 3 mathews people Identify 2 positive traits per week about myself Identify 2 things I have to look forward to Identify 2 positive people in my life and 1 thing I appreciate about them Interventions: Learn ways to manage depressive symptoms accordingly and identify positive supports to manage life stressors and mood fluctuations. Modalities: Encourage groups, education on depression, provide CBT treatment, family meeting. DSM5/PS Stressors/Medical Prob Diagnosis' (DSM 5, Stressors, Medical): F32.9 Unspecified Depressive Disorder F11.20 Opioid Use Disorder, Severe F10.20 Alcohol use disorder, Severe F13.20 Sedative, Hypnotic or Anxiolytic Use Disorder, Severe F14.20 Stimulant Use Disorder, Cocaine, severe Current GAF: 25 Treatment Team - Responsibilities of members of the treatment team include: - Medication Management- MD or MIRROR POLISHER - Medication Administration and Monitoring- Nurse - Group Therapy- Occupational Therapist - 1:1 Therapy,Disch Planning,family involvement-Truck Leasing Manager
[2016-12-01 08:09] VITALS: BP 140/73
[2016-12-01 08:10] VITALS: BP 140/73
--- NOTE | 2016-12-01 12:02 | CP SOUTH PROGRESS NOTE PSYCH ---
Psych (Inpt) Progress Note Progress Note Include the following elements, when applicable: Involvement in the active treatment of the patient with behavioral observations of the patient and the patient's response to the treatment. Review of the ongoing treatment process in the context of the treatment plan. Indication of how multi-disciplinary staff members are carrying out the treatment plan. Plans for future interventions and recommendations for revision of the treatment plan. Liaison with other physicians/providers. Progress Note: [I discussed this patient's progress to date, current mental status, treatment process in the context of the treatment plan, and discharge planning with staff/ team in the daily morning inpatient team meeting. I also met with the patient myself in individual session.] S: "I'm ready to start working again, I can't wait to." O: Current Medications Sig/Rip Start time Last Medication Dose Route Stop Time Status Admin Acetaminophen 500 MG Q6P PRN 11/26 2030 AC PO Al Hydroxide/Mg 30 ML Q4-6 PRN PRN 11/26 2045 AC Hydroxide PO Buspirone HCl 15 MG BID 11/26 1000 AC 12/01 PO 0813 Gabapentin 300 MG 0800,1400,11/30 1400 AC 12/01 PO 1306 Lorazepam 1 MG Q2 HRS NEEDED PRN 11/29 0945 DC PO Lorazepam 2 MG Q2 HRS NEEDED PRN 11/29 0945 DC PO Methadone HCl 70 MG 0800 11/27 0800 AC 12/01 PO 0813 Nicotine 2 MG Q2 HRS NEEDED PRN 11/27 1700 AC 12/01 PO 1306 Nicotine 14 MG DAILY 11/27 1656 AC 12/01 TOP 0816 Paroxetine HCl 40 MG DAILY 11/26 1000 AC 12/01 PO 0813 Quetiapine Fumarate 50 MG Q8P PRN 11/30 0830 AC 11/30 PO 1334 Quetiapine Fumarate 100 MG 2200 11/29 2200 AC 11/30 PO 2139 Vital Signs Date Time Temp Pulse Resp B/P Pulse O2 O2 Flow FiO2 Ox Delivery Rate 12/01 1219 78 124/76 12/01 0810 96.9 69 140/73 12/01 0809 96.9 69 140/73 11/30 2013 97.8 73 151/85 11/30 2012 73 151/85 11/30 1536 75 140/78 11/30 1535 75 140/78 A: Chart, progress notes, labs, VS, CIWA (not scoring), and medication list were reviewed. Vital signs within normal limits. No new labs results today. Met with patient 1:1 this afternoon. He presented calm and cooperative, easily engaged in conversation. 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 He expressed motivation to attend court date on 12/14 and address legal charges. He expressed feeling hopeful that court will work out in his favor. Patient reported calling 211 earlier today. He plans to discharge to a detention, until his scheduled court date. He reported that if he is not arrested following court date then he will return to the sober house he had been residing at prior to getting kicked out due to relapse. He denied urges/cravings to use substances. He verbalized the physical/psychosocial/legal consequences of relapsing. He denied active and passive suicidal ideation, plans and intent. He consistently denied endorsing a suicide plan in ED, and again expressed he stated a plan to guarantee admission into hospital for assistance with "getting clean." He denied homicidal ideation, auditory and visual hallucinations. There was no evidence of paranoia or jia delusions. He denied acute symptoms of anxiety and depression. Thought process was organized and goal-directed. Thought content was appropriate. Cognition was grossly intact. He reported tolerating all medications well and denied untoward medication effects. He was agreeable to continue taking prescribed medications. He refused further medication adjustments. P: 1. Continue monitoring patient on unit for safety and mood. 2. Continue current medications. 3. Dispo planning per primary team. 4. Discharge on Tuesday. 5. Discontinue CIWA protocol.
[2016-12-01 12:19] VITALS: BP 124/76
[2016-12-01 15:44] VITALS: BP 149/94
--- NOTE | 2016-12-01 16:36 | SOCIAL WORKER PROG NOTE PSYCH ---
Social Work Progress Note Progress Note Patient presented today with normal mood and affect. Patient reported that he attended groups all throughout the day and has been working on acceptance. Patient talked in great length about his legal hx and fear of going back to assisted. Patient reports that his plan to stay sober is to preoccupy himself with work and also engage in one on one therapy. He shared very openly with me during this session and expressed great concern to change his life around. He reported that his girlfriend is currently inpatient and will be going to residential rehab directly from the hospital. Patient denies SI/HI/AH/VH at present and is anticipating discharging for Tuesday.
[2016-12-01 19:39] VITALS: BP 134/68
[2016-12-02 07:43] VITALS: BP 109/62
--- NOTE | 2016-12-02 10:44 | CP SOUTH PROGRESS NOTE PSYCH ---
Psych (Inpt) Progress Note Progress Note Include the following elements, when applicable: Involvement in the active treatment of the patient with behavioral observations of the patient and the patient's response to the treatment. Review of the ongoing treatment process in the context of the treatment plan. Indication of how multi-disciplinary staff members are carrying out the treatment plan. Plans for future interventions and recommendations for revision of the treatment plan. Liaison with other physicians/providers. Progress Note: [I discussed this patient's progress to date, current mental status, treatment process in the context of the treatment plan, and discharge planning with staff/ team in the daily morning inpatient team meeting. I also met with the patient myself in individual session.] S: "I feel good, looking forward to getting back to work." O: Current Medications Sig/Rip Start time Last Medication Dose Route Stop Time Status Admin Acetaminophen 500 MG Q6P PRN 11/26 2030 AC PO Al Hydroxide/Mg 30 ML Q4-6 PRN PRN 11/26 2045 AC Hydroxide PO Buspirone HCl 15 MG BID 11/26 1000 AC 12/02 PO 0810 Gabapentin 300 MG 0800,1400,11/30 1400 AC 12/02 PO 0810 Methadone HCl 70 MG 0800 11/27 0800 AC 12/02 PO 0810 Nicotine 2 MG Q2 HRS NEEDED PRN 11/27 1700 AC 12/02 PO 0813 Nicotine 14 MG DAILY 11/27 1656 AC 12/02 TOP 0811 Paroxetine HCl 40 MG DAILY 11/26 1000 AC 12/02 PO 0810 Quetiapine Fumarate 50 MG Q8P PRN 11/30 0830 AC 12/01 PO 2302 Quetiapine Fumarate 100 MG 11/29 2200 AC 12/01 PO 2143 Vital Signs Date Time Temp Pulse Resp B/P Pulse O2 O2 Flow FiO2 Ox Delivery Rate 12/02 0743 96.7 79 109/62 12/01 1939 97.7 72 134/68 12/01 1544 71 149/94 12/01 1219 78 124/76 A: Chart, progress notes, labs, VS, and medication list were reviewed. Vital signs remain within normal limits. No new lab results today. Met with patient this morning. Itzel Mayer LCSW later joined our session. He remains in good spirits, and hopeful about resuming work on Tuesday. Also, he expressed awaiting his tax return money which he is motivated to use towards a sober home. He continues to report he will stay in a retirement until then. He was agreeable to sign releases today for [facility] and [facility] in order to establish medication management and individual therapy appointments. He reported he will continue methadone maintenance at [facility] in [place]. He remains motivated to attend his court date on 12/14/16 to address legal charges. Patient denied acute symptoms of anxiety and depression today. He denied passive and active suicidal ideation, plans and intent. He again reported today that reported a suicide plan in the ED in order to obtain admission to [facility] for help getting clean. Patient reported that hospitalization turned beneficial. Reports feeling "better" on medications. He denied homicidal ideation. Denied audiory and visual hallucinations. Thought process was linear, goal-directed. Thought content was appropriate. He reported tolerating medications well and denied untoward medication effects. He declined further medications at this time. P: 1. Continue monitoring on unit for safety and mood. 2. Continue current medications. 3. Obtain SHEN for [facility] and [facility] to organize aftercare plan. 4. Discharge tomorrow.
--- NOTE | 2016-12-02 10:45 | SOCIAL WORKER PROG NOTE PSYCH ---
Social Work Progress Note Progress Note Discussed Alonzo in team meeting today with Maisha Mariscal APRN and staff, his progress towards goals. Alonzo is scheduled to discharge tomorrow 12/03 at around 10am. He is going to stay at a longterm, he called 211. He will also return to [facility] for Methadone maintenance in [place]. He has court on 12/14. He stated he is waiting for his tax return of abotu $1,700 that he plans to pay to stay at a sober house - [facility], that he has resided at for the past 3yrs. He is confident that the branch coordinator of the sober house will accept him back. Offered to Fernando for me to contact [facility] if it would help him in any way, he declined and stated he can take care of it. Alonzo stated he has no SI/HI, no psychosis. His mood stable, he said "I have to sink of swim now, I have to stay clean and sober." He plans to attend AA/NA meetings, and get a sponsor. He is worried about the possibility of goign to retirement - he is thinking about hiring an banking attorney. Fernando was anxious today and worried he will not be discharged tomorrow, needed reassurance. Spoke with [facility] -Joelle Mayes - Clinical Coordinator , [place] , she stated Alonzo will be assigned a prescriber (given an appointment ), when he comes into see his counselor, Jose Rafael at [facility] on 12/06/16. Ms. Mayes/[facility] stated that they DO prescribe psychiatric medicaton, and Fernando will have no problem being assigned a prescriber within a week or two. Fernando will need to go to [facility] on 12/04 between 5:30am-12noon to get Methadone. [facility] W10 to [phone] AND (include social and MD note discharge note).
[2016-12-02 12:21] VITALS: BP 122/67
[2016-12-02 16:45] VITALS: BP 121/68
[2016-12-02 20:08] VITALS: BP 146/78
[2016-12-03 08:04] VITALS: BP 113/63
--- NOTE | 2016-12-03 08:49 | CP SOUTH PROGRESS NOTE PSYCH ---
Psych (Inpt) Progress Note Progress Note Include the following elements, when applicable: Involvement in the active treatment of the patient with behavioral observations of the patient and the patient's response to the treatment. Review of the ongoing treatment process in the context of the treatment plan. Indication of how multi-disciplinary staff members are carrying out the treatment plan. Plans for future interventions and recommendations for revision of the treatment plan. Liaison with other physicians/providers. Progress Note: [I discussed this patient's progress to date, current mental status, treatment process in the context of the treatment plan, and discharge planning with staff/ team in the daily morning inpatient team meeting. I also met with the patient myself in individual session.] S: "I feel good to leave." O: Current Medications Sig/Rip Start time Last Medication Dose Route Stop Time Status Admin Acetaminophen 500 MG Q6P PRN 11/26 2030 AC PO Al Hydroxide/Mg 30 ML Q4-6 PRN PRN 11/26 2045 AC Hydroxide PO Buspirone HCl 15 MG BID 11/26 1000 AC 12/03 PO 0814 Gabapentin 300 MG 0800,1400,11/30 1400 AC 12/03 PO 0814 Methadone HCl 70 MG 0800 11/27 0800 AC 12/03 PO 0815 Nicotine 2 MG Q2 HRS NEEDED PRN 11/27 1700 AC 12/02 PO 2212 Nicotine 14 MG DAILY 11/27 1656 AC 12/03 TOP 0814 Paroxetine HCl 40 MG DAILY 11/26 1000 AC 12/03 PO 0814 Quetiapine Fumarate 50 MG Q8P PRN 11/30 0830 AC 12/02 PO 2212 Quetiapine Fumarate 100 MG 0 11/29 2200 AC 12/02 PO 2118 Vital Signs Date Time Temp Pulse Resp B/P Pulse O2 O2 Flow FiO2 Ox Delivery Rate 12/03 0804 97.0 70 113/63 12/03 2007 97.2 81 146/78 12/02 1645 69 121/68 12/02 1221 74 122/67 A: Chart, progress notes, labs, VS, and medication list reviewed. Vital signs within normal limits. No new lab results today. Met with patient individually this morning on the date of discharge. He presented alert and oriented to person, place, time and situation. Speech was normal in rate, tone and volume. Affect was calm and constricted. Mood was euthymic. Eye contact was appropriate. He reported depression of 0/10 (10 being the worst) and anxiety of 3/10 (10 being the worst). 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 Also reported receiving "good news" from his older brother last evening (first time he mentioned having a supportive relative during hospitalization) who invited him to reside temporarily at his home in [place], [place] temporarily until he gets into a sober house. Patient reported feeling positive about arrangement to live with his older brother as it will eliminate his need to reside temporarily at a care home. He denied active and passive suicidal ideation, plans and intent. He denied homicidal ideation. He stated and also believed he will not harm himself or others. He identified protective factors of "my job," "my girlfriend," and "my older brother." He was goal-oriented to resume work, address his legal charges at his court date on 12/14/16, and get into a sober house.He denied feeling hopeless, helpless, worthless and guilty. Thought process was organized and goal directed. There was no evidence of paranoia or delusions. Denied auditory and visual hallucinations. Thought content was appropriate. Cognition was grossly intact. He reported tolerating all medications well and denied untoward medication effects. He reported feeling safe and ready for discharge. P: 1. Discharge today to brother's home in [place], [place]. 2. F/u at [facility] in [place], [place] on 12/04/16 5AM-12NOON for MMT. Appointment scheduled with [facility] counselor, Jose Rafael, Tuesday at 12/06/16 who will assign patient to a [facility] prescriber and schedule a medication management appointment for patient within 1 week from [place] discharge. 3. All discharge prescriptions were printed, reviewed with the patient, and provided to him on discharge. Patient verbalized understanding of all prescription directions. 4. Patient was strongly advised to abstain from all substances. He was advised to attend daily AA/NA meetings and to obtain a sponsor for support in sobriety. 5. Patient was advised that in the event of an emergency to call 911/go to nearest emergency department. Patient verbalized understanding of instruction.
--- NOTE | 2016-12-03 09:00 | DISCHARGE SUMMARY REPORT-PSYCH ---
Visit Information Visit Dates/Diagnosis' Admission Date: 11/26/16 Discharge Date: 12/03/16 Reason for Admission: Polysubstance abuse and suicidal ideation with reported plan. Psy Discharge Primary Diag: Unspecified Depressive Disorder Psy Discharge Secondary Diag: Cocaine use disorder; Benzodiazepine use disorder; Opiate use disorder, on methadone replacement; R/O Substance-induced depressive disorder. Hospital Course Significant Lab Findings: Lab Absolute Lymphocytes 3.8 /CUMM H 11/26/16 0246 MCH 31.4 PG H 11/26/16 0246 RBC 4.67 /CUMM L 11/26/16 0246 RDW 15.0 % H 11/26/16 0246 Methadone Screen > 735 NG/ML H 11/26/16 0309 U Benzodiazepines Scrn > 800 NG/ML H 11/26/16 0309 Urine Cocaine Screen > 1000 NG/ML H 11/26/16 0309 Course Complications: None. Consultations: The patient was seen for admission history and physical by solid tire finisher Dr. Murphy Erwin. Please see MD note for additional information. Allergies: Coded Allergies: meperidine (From DEMEROL) (Mild, FLUSHING 11/26/16) Hospital Course/TX Response: The patient was monitored on the unit for safety, mood, cocaine and benzodiazepine withdrawal, and suicidal ideation. He was monitored on [facility] protocol for benzodiazepine withdrawal and showed no sign or symptoms of withdrawal. He participated in multimodal treatments on the unit. Paxil 40mg daily was continued for anxiety and depression. Buspar 15mg twice daily was continued for anxiety. Gabapentin 300mg every 8 hours as needed was started for anxiety and gradually changed to scheduled three times daily. Seroquel 50mg at bedtime was started for insomnia which was increased to 100mg at bedtime. The patient reported tolerating all medications well and denied untoward medication effects. During the hospital course the patient's mood and affect improved. The patient consistently denied suicidal ideation and plan during hospitalization. He stated reporting suicidal ideation with plan in the emergency department because he needed help "getting clean and knew what to say to get admitted." The patient refused to allow any family or friends to be involved in his inpatient level of care. He refused treatment recommendation to engage in IOP level of care post- discharge due to his anticipated work schedule. He was only agreeable to engaging in outpatient therapy and medication management at [facility] where he currently receives his daily Methadone. An appointment was scheduled for patient at [facility] to meet with his counselor who stated she would also arrange a medication appointment for him post-discharge at [facility]. He presented alert and oriented to person, place, time and situation. Speech was normal in rate, tone and volume. Affect was calm and constricted. Mood was euthymic. Eye contact was appropriate. He reported depression of 0/10 (10 being the worst) and anxiety of 3/10 (10 being the worst). 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 Also reported receiving "good news" from his older brother last evening (first time he mentioned having a supportive relative during hospitalization) who invited him to reside temporarily at his home in [place], [place] temporarily until he gets into a sober house. Patient reported feeling positive about arrangement to live with his older brother as it will eliminate his need to reside temporarily at a jail. On the date of discharge, 12/03/16, the patient presented alert and oriented to person, place, time and situation. Speech was normal in rate, tone and volume. Affect was calm and constricted. Mood was euthymic. Eye contact was appropriate. He reported depression of 0/10 (10 being the worst) and anxiety of 3/10 (10 being the worst). 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 Also reported receiving "good news" from his older brother last evening (first time he mentioned having a supportive relative during hospitalization) who invited him to reside temporarily at his home in [place], [place] until he gets into a sober house. Patient reported feeling positive about arrangement to live with his older brother as it will eliminate his need to reside temporarily at a jail. He denied active and passive suicidal ideation, plans and intent. He denied homicidal ideation. He stated and also believed he will not harm himself or others. He identified protective factors of "my job," "my girlfriend," and "my older brother." He was goal-oriented to resume work, address his legal charges at his court date on 12/14/16, and get into a sober house. He denied feeling hopeless, helpless, worthless and guilty. Thought process was organized and goal directed. There was no evidence of paranoia or delusions. Denied auditory and visual hallucinations. Thought content was appropriate. Cognition was grossly intact. He reported tolerating all medications well and denied untoward medication effects. He reported feeling safe and ready for discharge. Discharge HBIPS - Tobacco Use Treatment Offered Post DC Medications Offered: Script Given-See Med List Post DC Tobacco Treatment Plan: Refused Tobcco Tx Pgm - EtOH/Drug Use D/O Treatment Offered Post DC Medications Offered: Med Not Indicated for D/O Post DC EtOH/SubAbuse TX Plan: Other SubAbuse/Dual Pgm Program Appt Date: 12/06/16 Metabolic Screening - Screen if on a Neuroleptic Medication - Metabolic screening should include: - Blood Pressure, BMI, Glucose or Hgb A1c, & a - Lipid profile from within the past 365 days. Metabolic Screening () Not Applicable, patient not on a neuroleptic. OR ([X]) Patient on a neuroleptic(s) . Enter below results for Glucose or Hemoglobin A1C, and lipid panel if obtained during the last 365 days. BMI: 27.700 Blood Pressure: 113/63 Laboratory Results (If applicable): Lab Cholesterol 148 MG/DL 11/29/16 0613 Cholesterol/HDL Ratio 4 % 11/29/16 0613 Glucose 106 mg/dL H 11/26/16 0246 HDL Cholesterol 42 mg/dL 11/29/16 0613 LDL Cholesterol, Calc 86 mg/dL 11/29/16 0613 Triglycerides 103 mg/dL 11/29/16 0613 Discharge Instructions General Discharge Information Discharge Medications: Discharge Medications- (Dose, route, freq, indication): START taking these NEW Home Medications: Nicotine (Nicotine Dose: On the skin, DAILY for Qty: 14 Printed Patch) 14 MG/24 HOUR 14 Milligram tobacco cessation Refills: 0 PATCH.TD24 Apply 1 patch topically to upper arm QAM and remove before HS. Last Taken:12/03/16 Time:08:14 Gabapentin Dose: ORAL, 0800,1400,2000 for Qty: 42 Printed (Gabapentin) 300 MG 300 Milligram anxiety Refills: 0 CAPSULE Take 1 capsule by mouth three times a day. Last Taken:12/03/16 Time:08:14 Quetiapine Fumarate Dose: ORAL, 2200 for Qty: 14 Printed (Quetiapine 100 Milligram anxiety/insomnia Refills: 0 Fumarate) 100 MG Take 1 tablet by mouth TABLET at bedtime. Last Taken:12/02/16 Time:21:00 CHANGES to Home Medications: Paroxetine HCl (Paxil) Dose: ORAL, DAILY for Printed 40 MG TABLET 1 Tablet depression/anxiety Take 1 tablet by mouth daily. Last Taken:12/03/16 Time:08:14 (changed from: DAILY for ANTIDEPRESSANT [ No Instructions ]) CONTINUE taking these Home Medications: Methadone Hydrochloride Dose: ORAL, DAILY for opioid (Methadone HCl) 10 MG 70 Milligram substitute TABLET Last Taken:12/03/16 Time:08:14 Buspirone HCl (Buspirone Dose: ORAL, TWICE DAILY for Renewed HCl) 15 MG TABLET 1 Tablet ANXIETY Printed Take 1 tablet by mouth twice a day. Last Taken:12/03/16 Time:08:14 Multiple Neuroleptics: ([X]) Not Applicable OR Document below three failed attempts at monotherapy, or a plan to taper to monotherapy, or augmentation of Clozapine. () Patient's Diet: Regular. Patient's Activity: No restrictions. DC Disposition: To live with his brother in [place], [place] temporarily while looking into sober houses. Recommendations: The patient was advised to please take medications as prescribed. He was advised to abstain from all substances, attend daily AA/NA meetings and to obtain a sponsor for support in sobriety. He was advised to follow-up with scheduled outpatient appointment and resume Methadone maintenance at [facility]. He was advised that in the event of an emergency to call 911/go to nearest emergency department. Patient verbalized understanding of all instructions. Referred To: [address][phone] [facility] - SAT. 12/04/16 at 5:30AM-12NOON WALK-IN - METHADONE [facility] - counselor - Jose Rafael 12/06/16 - obtain precriber appontment. Copies To: [facility]
[2016-12-03] MEDS ORDERED: PAXIL40 M1 PO (10:53)
[2016-12-03] MEDS ORDERED: QUETIAPINE FUM100 M1 PO (10:53)
[2016-12-03] MEDS ORDERED: BUSPIRONE HCL15 M1 PO (10:53)
[2016-12-03] MEDS ORDERED: NICOTINE PATCH1 EAC2 TOP (10:53)
[2016-12-03] MEDS ORDERED: GABAPENTIN300 M2 PO (10:53)
--- NOTE | 2016-12-03 11:16 | SOCIAL WORKER PROG NOTE PSYCH ---
Social Work Progress Note Progress Note Alonzo is prepared to discharge today. Feels motivated to work, and is agreeable to treatment at [facility]. Pt denies si/hi/ah/vh. Faxed over W10 to [facility].
== END 2016-12-03 11:20 | DRG 754 ==
LOC: ENRESERVTM → ENRESERVDT → ERH 02:03 → CP SOUTH 15:50 → ERHI 15:50 → ENPENDDIS 15:50 → CP SOUTH 17:47
PROVIDERS: Emergency Medicine; Psychiatry & Neurology Psychiatry; ADMIT Psychiatry & Neurology Addiction Medicine
DX: F32.9 Major depressive disorder, single episode, unspecified (principal); F11.20 Opioid dependence, uncomplicated; F14.90 Cocaine use, unspecified, uncomplicated; F13.90 Sedative, hypnotic, or anxiolytic use, unspecified, uncomplicated
CPT/HCPCS: 36415; 80307; 93005; 93010; G0480; J3490

== ENCOUNTER 2017-01-25 19:33 | Inpatient (IN) | payer OTHER ==
[~2017-01-25] VITALS: Ht 185.4 cm; Wt 99.8 kg
[~2017-01-25 19:33] MED LIST changes: +GABAPENTIN300 M2 PO; +METHADONE HCL10 M1 PO; +NICOTINE PATCH1 EAC2 TOP; +QUETIAPINE FUM100 M1 PO
--- NOTE | 2017-01-25 19:43 | NUR ---
PER PT FEELING SI X 2 DAYS LACS TO L WRIST FROM 2 DAYS , ADMITS TO ETOH AND COCAINE TODAY
--- NOTE | 2017-01-25 19:52 | NUR ---
BLOOD DRAWN AND SENT TO THE LAB ([facility])
--- NOTE | 2017-01-25 19:57 | NUR ---
CHEIKH AND INITIAL ASSESSMENTS BY SANDRA MADISON
[2017-01-25 20:02] LABS: ABSOLUTE BASOPHIL COUNT 0.1 /CUMM (0.0-0.2); ABSOLUTE EOSINOPHIL COUNT 0.1 /CUMM (0.0-0.7); ABSOLUTE GRANULOCYTE CT 6.4 /CUMM (1.4-6.5); ABSOLUTE LYMPH COUNT 2.5 /CUMM (1.2-3.4); ABSOLUTE MONOCYTE COUNT 0.6 /CUMM (0.10-0.60); BASOPHIL % 0.7 % (0.0-2.0); EOSINOPHIL % 0.7 % (0-5); GRANULOCYTE % 65.9 % (42.2-75.2); HEMATOCRIT 43.1 % (42-52); MEAN CORPUSCULAR HGB CONC 33.5 G/DL (33.0-37.0); MEAN CORPUSCULAR VOLUME 95.4 FL (80.0-94.0); MEAN PLATELET VOLUME 6.7 FL (7.4-10.4); PLATELET COUNT 291 /CUMM (130-400); RBC DISTRIBUTION WIDTH 16.7 % (11.5-14.5); RED BLOOD CELL CT 4.52 /CUMM (4.70-6.10); WHITE BLOOD CELL COUNT 9.8 /CUMM (4.8-10.8)
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
[2017-01-25 21:08] VITALS: BP 151/101
[2017-01-25 22:24] VITALS: BP 127/70
[2017-01-25 23:30] VITALS: BP 127/69
[2017-01-26] VITALS (14 sets, daily range): BP systolic 105–150; BP diastolic 55–95
--- NOTE | 2017-01-26 00:01 | NUR ---
PT SLEEPING ON BED. SITTER PRESENT
--- NOTE | 2017-01-26 03:35 | NUR ---
SITTER REMAINS IN PLACE
--- NOTE | 2017-01-26 03:35 | NUR ---
PT REPORT RECIEVED FROM GRICELDA HAWLEY, PT CARE ASSUMED. PT RESTING COMFORTABLY IN BED AT THIS. PT HAS NO COMPLAINTS
--- NOTE | 2017-01-26 04:36 | NUR ---
PT RESTING COMFORTABLY. VSS, CIWA SCORE OF 3.
--- NOTE | 2017-01-26 06:32 | NUR ---
PT VITALS STABLE, PT CIWA SCORE 8, PT C/O OF MILD NAUSEA AND A DULL HEADACHE, PT NOTED TO HAVE SOME SWEAT BEADS TO FOREHEAD. DR. HEART AWARE PT MEDICATED WITH ATARAX 25MG PO AND ZOFRAN 4MG ODT. BREAKFAST TRAY ORDERED.
--- NOTE | 2017-01-26 07:34 | NUR ---
ASSUMED CARE, PT AWAKE AND ALERT FOR VITALS , COMPLAINS OF FEELING SHAKEY, MILD VISIBLE TREMORS NOTED AT THIS TIME, PT NOTED WITH BEADS OF SWEAT ON FOREHEAD, DENIES NAUSEA AT THIS TIME.CIWA 11. FOOD TRAY PROVIDED
--- NOTE | 2017-01-26 07:41 | NUR ---
PT MEDICATED WITH 2 MG PO ATIVAN PER ORDER FOR CIWA 11
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
--- NOTE | 2017-01-26 08:58 | NUR ---
PT EVALUATED BY CRISIS AND TO BE ADMITTED TO [facility]
--- NOTE | 2017-01-26 09:27 | NUR ---
PER CRISIS PT TO BE ADMITTED TO [facility]
--- NOTE | 2017-01-26 09:34 | NUR ---
PT AWAKE AND ALERT, AWARE THAT HE IS TO BE ADMITTED TO [facility], DENIES TREMORS AND STATES THAT THE ATIVAN HELPED HIM A LOT.
--- NOTE | 2017-01-26 09:59 | IP CRISIS DIAG ASSESS PSYCH ---
Diagnostic Assessment Basic Assessment Insurance Authorization: Insurance #1: Insurance name: ELLI Naik [employer] Phone number: Policy number: [id number] Group number: Authorization number: [id number] Primary Care Physician: Patient's PCP: PATIENT HAS NO PRIMARY CARE DR PCP's Phone Number: Patient's Quote: "I feel like jumping off a bridge" Present Illness: Pt is a 36yo male who presents to the ED asking for help due to suicidal thoughts with plan to jump off a bridge. Pt was discharged from [facility] 2 months ago and he immediately relapsed drinking a 12 pack of beer and 7 shots of hard alcohol daily. Additionally he is smoking $50.00 worth of crack daily. pt and his girlfriend of 10 years Amy Emanuel were living together and recently broke up and she moved to her parents home. Pt identifies that this is what lead to his suicidal thoughts. Pt also reports that he has been out of work for 3 weeks. 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 He reports that they have not had him work since yet tell him he is still employed. Pt expresses feeling of hopelessness and helplessness. He identifies that prior to coming to the ED he has not slept of eaten in 3 days. He says he just started eating and sleeping again since he got to the hospital because he is relieved he is getting help. Pt expresses his motivation for tx and says he would not be safe if discharged. Crisis spoke to Amy on the phone who expresses great concern for pt's safety and advocates for inpt psych tx for pt. Case reviewed with Dr. Prado of psychiatry and pt will be admitted to [facility]. Patient's Address: [address] [place] [address] Other Phone Number: Who Do You Live With? Patient/Self Feel Safe Where You Live? Yes Feel Safe in Your Relationship Yes Marital Status: single Do You Have Children? No Ages? N/A Primary Language? Guamanian Language(s) Spoken At Home: Guamanian Family/Informants Interviewed: girlfriend Allergies - Coded Allergies: meperidine (From DEMEROL) (Mild, FLUSHING 11/26/16) Current Medications - Scheduled Medications Buspirone HCl 15 MG TABLET 1 TAB PO BID ANXIETY #28 TAB Prescribed by CHELSEY SHARIF APRN on 12/03/16 Gabapentin 300 MG CAPSULE 300 MG PO 0800,1400,1999 anxiety #42 CAP Prescribed by CHELSEY SHARIF APRN on 12/03/16 Last Taken: Unknown Dose at an unknown date and time Methadone Hydrochloride (Methadone HCl) 10 MG TABLET 70 MG PO DAILY opioid substitute (Reported) Entered as Reported by MONICA PIÑA on 11/26/161934 Last Taken: Unknown Dose at an unknown date and time Nicotine (Nicotine Patch) 14 MG/24 HOUR PATCH.TD24 14 MG TOP DAILY tobacco cessation #14 PATCH Prescribed by CHELSEY SHARIF APRN on 12/03/16 Paroxetine HCl (Paxil) 40 MG TABLET 1 TAB PO DAILY depression/anxiety #14 TAB Prescribed by CHELSEY SHARIF APRN on 12/03/16 Quetiapine Fumarate 100 MG TABLET 100 MG PO 2200 anxiety/insomnia #14 TAB Prescribed by CHELSEY SHARIF APRN on 12/03/16 Lab Results: Laboratory Tests 01/25/171999: Urine Opiates Screen < 100.00, Methadone Screen 62, Barbiturate Screen < 60, Ur Phencyclidine Scrn 15.40, Amphetamines Screen 115, U Benzodiazepines Scrn < 85, Urine Cocaine Screen > 1000 H, Urine Cannabis Screen < 5.00 01/25/171951: Anion Gap 20 H, Estimated GFR > 60, BUN/Creatinine Ratio 10.0, Glucose 134 H, Calcium 9.4, Total Bilirubin 0.6, AST 28, ALT 49, Alkaline Phosphatase 91, Total Protein 7.9, Albumin 4.8, Globulin 3.1, Albumin/Globulin Ratio 1.5, Amylase 38, Lipase 41, TSH &T3 &Free T4 Intrp Pending, CBC w Diff NO MAN DIFF REQ, RBC 4.52 L, MCV 95.4 H, MCH 32.0 H, RDW 16.7 H, MPV 6.7 L, Gran % 65.9, Lymphocytes % 26.1, Monocytes % 6.6, Eosinophils % 0.7, Basophils % 0.7, Absolute Granulocytes 6.4, Absolute Lymphocytes 2.5, Absolute Monocytes 0.6, Absolute Eosinophils 0.1, Absolute Basophils 0.1, PUBS MCHC 33.5, Serum Alcohol 207.0 Toxicology Screen Completed? Yes Results: positive Past History Past Surgical History Surgical History none Abuse/Trauma History Trauma History/Current Trauma: Denies Abuse/Trauma Treatment: N/A Legal History Current Legal Status: on probation Have you ever been arrested? 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 Physical Limitations (Interventions): None Psychiatric Treatment History Psych Treatment Psychiatric Treatment Yes Inpatient Treatment Yes Outpatient Treatment Yes Location of Treatment [facility] Reason for Treatment depression and polysubstance Dates of Treatment multiple Response to Treatment variable Diagnosis by History: Depression, polysubstance abuse Risk Factors: high anxiety/distress, SA/MH hospitalized, substance abuse, isolate/no social support, lives alone, male, limited support Substance Use/Abuse History Drug Use/Abuse minimum 12mo Hx Substances Used/Abused Yes Substance Used/Abused Other (list in comments) (see Present Illness above) Substance Abuse Treatment Substance Abuse Treatment Past Substance Abuse [place] Yes Inpatient Treatment Yes Outpatient Treatment Yes Location of Treatment [facility] Reason for Treatment poly-substance Dates of Treatment multiple Response to Treatment variable Sexual History Sexually Active Yes # of partners 1 Sexual Orientation Heterosexual Use of Protection No Sexual Concerns: None noted Education History Highest Level of Education: high school/GED Preferred Learning Style: visual, auditory, experiential Current Mental Status Mental Status Orientation: Person, Place, Situation Affect: Blunted, Depressed, Flat, Hopeless, Sad Speech: Mumbled Neuro-vegetative: Anhedonia, Appetite Decreased, Energy Decreased, Helpless, Loss of Interest, Sleep Disturbance Appearance Appearance- Dress/Hygiene: unkempt, disheveled Behaviors Thought Process: WNL Thought Content: WNL Memory: WNL Insight: Fair SI/HI Risk Assessment - Minimum 6mo History- Past Suicidal Ideation/Attempts Yes Current Suicidal Ideation/Att Yes Past Homicidal Ideation/Att: No Current Homicidal Ideation/Attempts No Degree of Intent: Plan Danger To: Self Risk Factors: high anxiety/distress, SA/MH hospitalized, substance abuse, isolate/no social support, lives alone, male, limited support Lethality Ratin Needs/Init TX Plan/Goals: safety and stabilization sx, individual group and family therapy, med eval, AUDIT-C Questionnaire: AUDIT-C Questionnaire: Response Value ETOH use in the past year 4 or more per week 4 # drinks typical/day 10 or more 4 6 or > drinks per occasion Daily/Almost Daily 4 Total 12 DSM5/PS Stressors/Medical Prob Diagnosis' (DSM 5, Stressors, Medical): F32.9 Unspecified Depressive Disorder F10.20 Alcohol use disorder, Severe F14.20 Stimulant Use Disorder, Cocaine, severe F11.20 Opioid Use Disorder, Severe (by history) F13.20 Sedative, Hypnotic or Anxiolytic Use Disorder, Severe (by history) Current GAF: 25
--- NOTE | 2017-01-26 10:30 | NUR ---
PT REMAINS CALM AND COPERATIVE NO VISIBLE TREMORS NOTED AT THIS TIME
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
--- NOTE | 2017-01-26 11:27 | NUR ---
REPORT CALLED TO JUANITA IN [facility]. TRANSPORT BOOKED
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
--- NOTE | 2017-01-26 19:27 | NUR ---
PT IS CALM, COOPERATIVE WITH STAFF AND PEERS, AND COMPLIANT WITH UNIT RULES. OFTEN IN MILIEU, INTERACTING WELL WITH OTHERS. CAN BE SLIGHTLY WITHDRAWN AT TIMES. MOOD IS STABLE, AFFECT IS EUTHYMCI TO FULL RANGE, COMMUNICATION IS ORGANIZED AND APPEARS NORMAL IN ALL RESPECTS, AND APPETITE IS NORMAL. PT DENIES SI AT THIS TIME.
[2017-01-27] VITALS (10 sets, daily range): BP systolic 132–147; BP diastolic 62–79
--- NOTE | 2017-01-27 07:21 | NUR ---
PT SLEPT AFTER MIDNITE ATIVAN. PT UP EARLY AT 0430, SITTING IN THE LOUNGE.
--- NOTE | 2017-01-27 10:54 | NUR ---
PT IS CALM, COOPERATIVE WITH STAFF AND PEERS, AND COMPLIANT WITH UNIT RULES. BOTH IN AND OUT OF MILIEU, APPEARING SLIGHTLY LETHRGIC AND SLEEPING IN PT ROOM FOR PERIODS OF TIME. WHILE IN MILIEU PT IS INTERACTING WELL WITH OTHERS. MOOD IS STABLE, AFFECT APPEARS EUTHYMIC TO FULL RANGE, COMMUNICATION IS ORGANIZED AND APPEARS NORMAL IN ALL RESPECTS, AND APPETITE IS NORMAL. PT DENIES SI AT THIS TIME.
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
--- NOTE | 2017-01-27 13:56 | SOCIAL WORKER PROG NOTE PSYCH ---
Social Work Progress Note Progress Note Fernando slept well last night. Reports feeling really tired today. Went to one group. Talked about the seperation that he is going through with his girlfriend Amy of 10 years. She is currently living with her parents. He has been speaking with her and he describes her as his main support. He believes that they may get back together, although states that it probably would be good for them to go their seperate ways for a while. She uses drugs and alcohol as well. They have gone through sober periods together in the past. He is extremely dependent on her emotionally and for other things such as transportation. Fernando is fixated on the idea of going back to work soon. He has been working for a [employer] company called [employer]. He shared that there is a big job coming up and he was told that he would be working with them soon. He has been out of work for the past couple of weeks. He ran out of money and can no longer afford the room he has been renting. He is currently homeless. He states that he needs to work in order to have somewhere to stay and so that is his focus. He is prepared to live in a half-way if he has to at discharge. He has a hx of staying in shelters in [place]. I confronted him with the fact that he won't have a job, if he can't remain clean and sober. He is thinking about it, but appears very swayed to work vs. attend IOP. He went off Methadone 70mg recently "cold turkey" after learning that he needed to leave the state for a job he was doing. He has been buying Suboxone off the street. He is currently feeling some effects of withdrawl, diahrrea, claminess, sweating. He reports that his mood and thoughts have been very negative over the last few months. He had thoughts to jump off an overpass. When asked what stopped him? He said "I want to live." He believes he can get through this. He stated he would like to talk to the psychiatrist about Trileptal. He remembers feeling good on that in the past. He doesn't feel his current medication is helping. Told me Amy is coming to bring him clothes today. He signed a release for her.
--- NOTE | 2017-01-27 13:56 | SOCIAL WORKER TX PLAN PSYCH ---
Treatment Plan - Please Document: - Evidence that there is ongoing collaboration between - the patient and the interdisciplinary team, - including the patient's active participation and - responsibility for engaging in the treatment regimen, - and that the treatment plan is individualized and - relevant to the patient's conditions. - Treatment plan should reflect documentation indicating - that all active therapeutic efforts are included. Strengths/Capabilities: Patient identifies when he needs to ask for help and seeks treatment. Physical Limitations (Interventions): None DSM5/PS Stressors/Medical Prob Diagnosis' (DSM 5, Stressors, Medical): F32.9 Unspecified Depressive Disorder F10.20 Alcohol use disorder, Severe F14.20 Stimulant Use Disorder, Cocaine, severe F11.20 Opioid Use Disorder, Severe (by history) F13.20 Sedative, Hypnotic or Anxiolytic Use Disorder, Severe (by history) Current GAF: 25 Treatment Team - Responsibilities of members of the treatment team include: - Medication Management- MD or SALVAGE MACHINE OPERATOR - Medication Administration and Monitoring- Nurse - Group Therapy- Occupational Therapist - 1:1 Therapy,Disch Planning,family involvement-Inside Sales Account Manager
--- NOTE | 2017-01-27 19:02 | CPS MD/APRN INITIAL ASSE PSYCH ---
Psychiatric Admission Information Lead's Note Reviewed: Yes Patient Seen and Examined: Yes Identifying Information: This is the 2nd [facility] admission within barely two months for a 36-year-old man recently estranged from his girlfriend of 10 years, homeless and unemployed (lost most recent job "[id number]" after "going off methadone 'cold turkey'"). Chief Complaint: "I feel like jumping off a bridge." Reaction to Hospitalization: hoping for help; signed in as a voluntary patient History of Present Illness Onset of Illness: Patient entered the E.D. on the evening of 01/25/2017 reporting acute suicidal ideation with two recent minor lacerations to L wrist and using $50.00 of crack cocaine and a half pint of vodka that day, also using Suboxone "off the street " to help with methadone withdrawal symptoms (had self- discontinued methadone maintenance dose of 70mdaily about 3 weeks ago). He reported "not eating or sleeping for 3 days." At that time, patient was described as diaphoretic, nauseous, shaky, with a dull headache and mild tremor visible; there was some subjective improvement to above presentation following several administrations of Ativan. Circumstances Leading to Admission: Patient reported a serious break-up with girfriend of 10 years just 2-3 days SEGREGATOR with g/f moving back into her parents' home and patient himself becoming homeless. He identified onset of suicidality since then. Patient had been out of work for 3 weeks after becoming acutely impaired following abruptly self- discontinuing methadone maintenance, 70mg/day; since then he had been "buying Suboxone from the street..." to "treat" methadone withdrawal sx. Problem(s) Justifying Need for Admission: --acute suicidal ideation with plan "to jump off a bridge" --probable polydrug withdrawal (from opioids, benzos, Suboxone, ?others) intensifying suicidality Other HPI: Patient had initially been admitted to [facility], about 2 months ago, 11/26-2016 (see discharge summary from that admission in electronic medical record for details), also for suicidal ideation with plan in context of polysubstance abuse /intoxication (urine tox. screen showed intoxication with benzodiazepines, cocaine and methadone--patient on chronic methadone maintenance therapy). He was stabilized and discharged to resume methadone maintenance with [facility] in [place]. However, he soon relapsed to drinking a half pint of vodka and a 12-pack of beer daily and thereafter discontinued methadone maintenance (70mg/day) unilaterally and "cold turkey." Since then he has been taking unclear amounts of Suboxone "from the street" in his effort to ease the extended withdrawal from methadone he has been suffering. Past Psychiatric History Past Diagnosis(es)- if any: on discharge from [facility], 12/06/2016: --Unspecified Depressive Disorder --Cocaine Use Disorder --Benzodiazepine Use Disorder --Opioid Use Disorder--on methadone maintenance --R/O substance-induced depressive disorder Past Precipitating Factors- if any: --polysubstance abuse/intoxication, especially with crack cocaine (the latter contributing to acute intensification of depressive mood/symptoms and significant risk of impulsive suicidality --relationship difficulties --work issues/lack of work - Include inpatient and outpatient treatment Treatment History: Things started to become "tumultuous" in early adolescence. Patient has had treatment at least as long as his admission to [facility] in 2001 ( around age 21-22). He has been seen at [facility] in [place]. He may have become generally more stable for a time after meeting his girlfriend of 10 years but she is said to "use" as well. He has most recently been in treatment and on methadone maintenance at [facility] and where he was also detox'd from benzodiazepines History of Suicide Attempts or Gestures past history of "pill overdose" Substance Abuse History: (see above) main drugs of abuse opioids (until recently on methadone maintenance , apparently with some success in avoiding abuse of other opioids but NOT other drugs); at times heavy but apparently somewhat intermittent/recurrent abuse of crack cocaine and benzodiazepines upon which he has repeatedly relapsed; he has also abused alcohol and came into the E.D. SEGREGATOR with a CARLOS of 164.0 Allergies: Coded Allergies: meperidine (From DEMEROL) (Mild, FLUSHING 11/26/16) Home Med List: at the time of previous recent [facility] discharge on 12/03/2016 his medications were listed as: --Paxil, 40mg/day (in AM) --Seroquel, 100mg HS --BuSpar, 15mg 2x/day --Neurontin, 300mg 3x/day and: methadone, 70mg/day (per [facility], [place]) also: urged to utilize nicotine patch, 14mg daily OTC - Include any medical condition(s) that may - impact the patient's recovery/remission Past History Medical History Neurological: NONE EENT: NONE Cardiovascular: NONE Respiratory: NONE Gastrointestinal: NONE Hepatic: NONE Renal: NONE Musculoskeletal: NONE Psychiatric: alcohol dependence (cocaine/benzodiazepine/alcohol), anxiety, depression, opioid dependence (just stopped methadone ([facility])), substance abuse Endocrine: NONE Blood Disorders: NONE Cancer(s): NONE 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/Reproductive: 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 History of MRSA: No History of VRE: No History of CDIFF: No Isolation History: Standard Surgical History Surgical History: none Psychiatric Family/Social Hx Family History Psychiatric Illness: anxiety on mother's side of family Substance Use: alcohol abuse on father's side of family Suicides: unknown Social History Living Situation: (see above, under "Identifying Information") Significant Relationships (family/friends): --claims only significant relationship has been with girlfriend of 10 years and now that is strained to the breaking point Education: at least "some high school" Vocation/Occupation: has worked in [employer] business but usually laid off for absenteeism (the latter often related to substance abuse) though may have a job offer soon Legal: a number of adult arrests including felonies; most recent charges Assault Third Degree and Violation of Probation out of [place] [address] ([address] is [place] of [place]) Healthly Behaviors Screening Tobacco Screening Tobacco Use from ED Docu: Current Daily Use Daily Tobacco Use Amount/Type: => 5 Cigarettes daily - If tobacco counseling indicated - the following topics are required. - #1 Recognizing dangerous situations. - #2 Coping Skills. - #3 Basic information about quitting. Status of Tobacco Cessation Counseling: #1, #2 AND #3 Completed Cessation Med Status Nicotine Patch Ordered Alcohol Screening - ETOH screen POS if BAL >=80 or Audit-C>= M4/F3 Audit-C Score from Diag Assess: 12 Blood Alcohol Level: CARLSO in E.D. SEGREGATOR = 164.0 Alcohol Use Screening Results: Pos per Audit C &/or BAL - If ETOH counseling indicated - the following topics are required. - #1 Express concern about the patient's - drinking at unhealthy levels, include informing - of national norms for moderate drinking: - men <= 14 drinks/week, max 4 drinks/occasion - women <= 7 drinks/week, max 3 drinks/occasion - #2 Providing feedback, including linking alcohol to - negative physical effects (liver injury, hypertension) - negative emotional effects (relationship problems and - depression) - negative occupational consequences (reduced work - performance) - #3 Advising the patient to abstain from alcohol or - to drink below national norms for moderate drinking - (as listed above). Status of ETOH Use Counseling: #1, #2 AND #3 Completed. Metabolic Screening - Screen if on a Neuroleptic Medication - Metabolic screening should include: - Blood Pressure, BMI, Glucose or Hgb A1c, & a - Lipid profile from within the past 365 days. Metabolic Screening () Not Applicable, patient not on a neuroleptic. OR ([X]) Patient on a neuroleptic(s) . Enter below results for Glucose or Hemoglobin A1C, and lipid panel if obtained during the last 365 days. BMI: 29.000 Blood Pressure: 145/77 Laboratory Results (If applicable): [X] glucose = 134 (drawn on 01/25/2017) cholesterol = 148 (all drawn on 11/29/2016) triglycerides = 103 HDL = 42 LDL = 86 Exam and Plan Mental Status Examination Ambulation Status: without assistance Appearance: adequately groomed, bearded Attitude towards examiner: positive and more so as interview progressed Psychomotor activity: unremarkable; not pressured or retarded Behavior: appropriate, respectful, a bit downcast Quality of speech: normal volume, rate, tone and prosody Affect: constricted, sad, sullen, worried Mood: depressed, teary or near tears at times Suicidal Ideation: denied at this time; feels safe in hospital from his own moodiness and impulsivity Homicidal Ideation: denied Hallucinations: denied Paranoid/Delusional Material: no evidence of Difficulties with thought organization: somewhat circumstantial but generally clear, coherent and goal-directed Insight: poor Judgment: recently poor; currently appears to be improving Orientation: full Cognition: grossly intact though a little slow at times Memory Function: appears intact Estimate of intellectual functioning: average Assets/Strengths Patient Identified Assets/Strengths: --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 He noted that during a previous inpatient detox prescription of Trileptal had seemed to be quite helpful "for two days." Patient has been heavily abusing alcohol for most of the past two months but urine tox screen though showing cocaine intoxcation was negative for benzodiazepines (had been intoxicated with benzos. at the time of 11/2016 admission here). His abrupt self-discontinuation of methadone (so he "could go [id number] on a job") was impulsive and caused much disruption, including the loss of the job he had stopped the methadone for; he seems to still be feeling the effects of this, plus discontinuing the Suboxone "from the street" he had been taking in an effort to ease withdrawal (also ill-advised and now likely with its own "detox" symptoms). 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 Patient denies any past experience with A.A./N.A. despite his long history of polydrug abuse and unhappy consequences thereof; he needs to get involved and acquire a temporary sponsor (or two) at his earliest opportunity. - Include all active medical diagnosis that require tx DSM 5 Diagnosis(es): --Unspecifed Depressive Disorder with serious suicidality (thoughts of "jumping off a bridge") --R/O Unspecified Bipolar (spectrum) Disorder; MRE Depressed and suicidal --R/O polysubstance related exacerbation of depression/mood disorder/suicidality --Alcohol Use Disorder, currently severe --Alcohol Intoxication --Cocaine Use Disorder --Cocaine Intoxication --Opioid Use Disorder; until very recently in evident remission on methadone maintenance --abrupt self-discontinuation of methadone therapy (70mg/day) about 3 weeks SEGREGATOR with subsequent severe and extended withdrawal --Suboxone abuse (using to "ease" withdrawal from methadone) R/O physical dependence on Suboxone Nicotine Use Disorder - Initial Tx Plan for Active Psych & Medical Conditions Treatment Plan: --use tapering regular doses of Ativan and PRN Ativan based upon elevations in CIWA scores and/or pulse rate to effect safe detox from alcohol --provide regular and PRN doses of clonidine and other symptomatic treatment to ease late methadone (and possible Suboxone) withdrawal symptomatology --continue/re-establish regular treatment with Paxil for anti-depressant and anti-panic anxiety effects --start a clinical trial of Tegretol --attempt to hold a couple's meeting with patient and longtime girlfriend if the latter is willing at this point (may have to wait for IOP/OPS) --refer patient to sober living environment (?another sober house--had been recently kicked out of one prior to first [facility] admission, 11/2016) --refer patient to a dual diagnosis IOP close to where he will be staying/living on discharge --encourage patient to involve himself in active A.A./N.A. participation and in securing a sponsor - Factors that would help patient function - in a less restrictive setting. Factors: --uncomplicated and rapid polysubstance detoxes --rapid resolution of suicidality/suicidal impulses --rapid organization of a sober living situation/aftercare/mobilization of community support --patient willingness to involve himself in A.A/N.A --rapid improvement in patient's relatiionship with longtime girlfriend (seems unlikely at this time)
--- NOTE | 2017-01-27 21:42 | NUR ---
PT IS VISIBLE ON UNIT, SOCIAL WITH PEERS AND WATCHING TV IN LOUNGE. ATTENDED AA AND WRAP UP MEETING. COOPERATIVE AND COMPLIANT WITH STAFF. NO COMPLAINTS OR SI REPORTED. PT HAS A STABLE MOOD AND FULL RANGE AFFECT.
[2017-01-28] VITALS (8 sets, daily range): BP systolic 118–144; BP diastolic 65–79
--- NOTE | 2017-01-28 16:06 | SOCIAL WORKER PROG NOTE PSYCH ---
Social Work Progress Note Progress Note Fernando has been very tired today. Reported falling asleep in group. Feels that the new medication may be causing drowsiness. We talked about discharge planning. He remains focused on going to a pen[place]entiary in the [place] area, because he feels he will be closer to where his employer is. We talked about looking at Sober Houses. He was open to that. He believes he may be able to get some help with rent payment the first couple months through [employer]. I gave him a list of Sober Houses. He started calling a few places. He would be open to possibly starting an IOP if it is close to where he is staying. He still seems a little ambivalent thought, with his main priority being work. I told him he can always stop IOP and do outpatient if he starts working and the schedule doesn't fit.
--- NOTE | 2017-01-28 19:12 | CP SOUTH PROGRESS NOTE PSYCH ---
Psych (Inpt) Progress Note Progress Note Include the following elements, when applicable: Involvement in the active treatment of the patient with behavioral observations of the patient and the patient's response to the treatment. Review of the ongoing treatment process in the context of the treatment plan. Indication of how multi-disciplinary staff members are carrying out the treatment plan. Plans for future interventions and recommendations for revision of the treatment plan. Liaison with other physicians/providers. Progress Note: PSYCHIATRIST NOTE, 01/28/2017: I discussed this patient's progress to date, current mental status, treatment and discharge planning with staff team today in the daily morning ITTM and also met with him again myself in individual session. Ativan taper is proceeding and has been well tolerated by patient thus far though he did experience some sleep disturbance/discontinuity last night; we plan to continue reducing regular Ativan dose through the coming weekend with last scheduled dose of 0.5mg to be administered on 01/31/2017 at noontime. Patient has tolerated the initial doses of Tegretol, 200mg, well and is hopeful it will help establish a more stable, less depressed/dysphoric not as labile mood (as he thought he had experienced from a brief trial on Trileptal during a previous detox); initial carbamazepine level will be checked in AM on 01/31/2017. 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 Patient appears resigned to the likelihood that he will not be able to get back with his partner/longtime girlfriend (of 10 years) in the near future but remains committed to working on the relationship when that is possible and understands that his being completely "clean and sober" and fairly secure in this is undoubtedly a precondition as far as his g/f is concerned. Patient now favors looking for at least short-term residence in a sober house with attendance at the closest dual focus IOP.
--- NOTE | 2017-01-28 19:22 | NUR ---
PT IS CLAM, COOPERATIVE WITH STAFF AND PEERS, AND COMPLIANT WITH UNIT RULES. OFTEN IN [place], INTERACTIGN WELL WITH OTHERS. MOOD IS STABLE, AFFECT APPEARS NORMAL IN ALL RESPECTS, COMMUNICATION IS ORGANIZED AND APPEARS NORMAL IN ALL RESPECTS, AND APPETITE IS NORMAL. PT DENIES SI AT THIS TIME.
[2017-01-29] VITALS (8 sets, daily range): BP systolic 128–145; BP diastolic 67–77
--- NOTE | 2017-01-29 05:04 | NUR ---
PT SLEPT. PT HAD NO PRNs.
--- NOTE | 2017-01-29 10:21 | CP SOUTH PROGRESS NOTE PSYCH ---
Psych (Inpt) Progress Note Progress Note Include the following elements, when applicable: Involvement in the active treatment of the patient with behavioral observations of the patient and the patient's response to the treatment. Review of the ongoing treatment process in the context of the treatment plan. Indication of how multi-disciplinary staff members are carrying out the treatment plan. Plans for future interventions and recommendations for revision of the treatment plan. Liaison with other physicians/providers. Progress Note: I discussed this patient's progress to date, current mental status, treatment process in the context of the treatment plan, and discharge planning with staff/ team in the daily morning inpatient team meeting. I also met with the patient myself in individual session. pt is toelrating detox. He reports feelnig better. he says he is motivated for sobriety and he wants to go to a sober house. No current si/hi Vital Signs Date Time Temp Pulse Resp B/P B/P Pulse O2 O2 Flow FiO2 Mean Ox Delivery Rate 01/29 0753 96.0 72 97 136/69 01/29 0742 96.0 72 136/69 01/29 0741 96.0 72 136/69 01/29 0459 84 128/76 01/28 2150 97.2 78 97 139/74 01/28 2009 97.2 78 97 139/74 01/28 2004 97.2 78 139/74 01/28 1623 72 144/79 01/28 1615 72 144/79 01/28 1528 96.7 68 18 118/65 / 1224 68 118/65 01/28 1221 68 118/65 A/P Pt is tolerating detox. Affect is imporoving. Continue with current management. Current Medications Sig/Rip Start time Last Medication Dose Route Stop Time Status Admin Acetaminophen 650 MG Q6P PRN 01/26 1030 AC PO Al Hydroxide/Mg 30 ML Q4-6 PRN PRN 01/26 1030 AC Hydroxide PO Baclofen 10 MG Q6P PRN 01/26 1645 AC 01/29 PO 0756 Buspirone HCl 15 MG Q6H PRN 01/28 1845 AC PO Buspirone HCl 15 MG 0800,0 01/27 2200 AC / PO 0753 Carbamazepine 200 MG 0800,01/27 2030 AC 01/29 PO 0753 Clonidine 0.1 MG 0800,1400,0 01/28 2200 AC 01/29 PO 0753 Clonidine 0.1 MG Q8P PRN 01/26 1645 AC 01/28 PO 0055 Clonidine 0.1 MG TID 01/26 1637 DC 01/28 PO 1528 Dicyclomine HCl 20 MG Q6P PRN 01/26 1645 AC 01/29 PO 0756 Gabapentin 300 MG 2200 01/28 2200 AC 01/28 PO 01/30 2201 2149 Gabapentin 300 MG Q4H PRN 01/28 1845 AC PO Gabapentin 300 MG Q6P PRN 01/26 1030 DC 01/27 PO 2157 Lorazepam 0.5 MG 1200 01/31 1200 AC PO 01/31 1201 Lorazepam 0.5 MG ONCE 01/31 0000 CAN PO 01/31 0001 Lorazepam 0.5 MG 0800,01/30 0800 AC PO 01/30 2001 Lorazepam 0.5 MG Q6H 01/30 0000 CAN PO 01/30 1801 Lorazepam 0.5 MG ONCE ONE 01/29 1800 CAN PO 01/29 1801 Lorazepam 0.5 MG 0800,1300,1700,2200 01/29 0800 AC 01/29 PO 01/29 2201 0753 Lorazepam 1 MG Q6H 01/29 0000 CAN PO 01/29 1201 Lorazepam 1 MG 2200 01/28 2200 DC 01/28 PO 01/28 2201 2151 Lorazepam 0.5 MG .STK-MED ONE 01/28 1738 DC PO 01/28 1739 Lorazepam 1.5 MG Q12H 01/28 0600 DC 01/28 PO 01/28 1801 1743 Lorazepam 1 MG Q12H 01/28 0000 DC 01/28 PO 01/28 1201 1210 Lorazepam 2 MG Q2P PRN 01/26 1030 AC PO Lorazepam 1 MG Q2P PRN 01/26 1030 AC PO Magnesium Hydroxide 30 ML AT BEDTIME PRN 01/26 1030 AC PO Multivitamins 1 TAB DAILY 01/26 1021 AC 01/29 PO 0753 Nicotine 2 MG .STK-MED ONE 01/28 1917 DC PO 01/28 1918 Nicotine 2 MG .STK-MED ONE 01/28 1737 DC PO 01/28 1738 Nicotine 2 MG .STK-MED ONE 01/28 1204 DC PO 01/28 1205 Nicotine 14 MG 0801/27 1045 AC 01/29 TOP 0753 Nicotine 2 MG Q2P PRN 01/26 1645 AC 01/29 PO 0753 Ondansetron HCl 4 MG Q6H PRN 01/27 1430 AC 01/27 PO 1433 Paroxetine HCl 40 MG 0801/28 0800 AC 01/29 PO 0753 Quetiapine Fumarate 50 MG 0 01/28 2200 AC 01/28 PO 2149 Quetiapine Fumarate 50 MG AT BEDTIME NEED.. 01/28 2000 AC PO Trazodone HCl 50 MG AT BEDTIME NEED.. 01/26 1030 DC PO
--- NOTE | 2017-01-29 13:51 | NUR ---
PT NOT VISIBLE MUCH IN THE [place] TODAY. HE DID GO TO PLANNING MEETING THIS MORNING AND MADE THE GOAL TO HAVE A GOOD VISIT WITH HIS GIRLFRIEND. PT DID NOT ATTEND FOCUS GROUP AND HAS BEEN LAYING DOWN IN HIS ROOM MOST OF THE DAY. PT HAS BEEN COOPERATIVE WITH STAFF DIRECTION AND DENIES THOUGHTS OF HURTING HIMSELF.
--- NOTE | 2017-01-29 21:51 | NUR ---
PT HAS BEEN OUT IN THE COMMUNITY AND HAD BEEN SOCIAL WITH STAFF AND PEERS. THERE HAS BEEN NO OBSERVATION OR REPORTS ON HER FEELINGS AND EMOTIONS FURTHER.
[2017-01-30] VITALS (8 sets, daily range): BP systolic 123–145; BP diastolic 52–80
--- NOTE | 2017-01-30 06:09 | NUR ---
PT SLEPT. PT SOCIAL, ESPECIALLY WITH VISHNU Keller
--- NOTE | 2017-01-30 09:34 | CP SOUTH PROGRESS NOTE PSYCH ---
Psych (Inpt) Progress Note Progress Note Include the following elements, when applicable: Involvement in the active treatment of the patient with behavioral observations of the patient and the patient's response to the treatment. Review of the ongoing treatment process in the context of the treatment plan. Indication of how multi-disciplinary staff members are carrying out the treatment plan. Plans for future interventions and recommendations for revision of the treatment plan. Liaison with other physicians/providers. Progress Note: I discussed this patient's progress to date, current mental status, treatment process in the context of the treatment plan, and discharge planning with staff/ team in the daily morning inpatient team meeting. I also met with the patient myself in individual session. Patient is feeling okay today. He denies any suicidal or homicidal ideation. He reports he would like to be started on Trileptal, he remembers that that medication helped him a lot in the past. Vital Signs Date Time Temp Pulse Resp B/P B/P Pulse O2 O2 Flow FiO2 Mean Ox Delivery Rate 01/31 0852 70 145/74 01/30 0813 96.7 70 16 145/74 01/30 0812 96.7 70 145/74 01/29 2208 97.2 68 97 141/75 01/29 2045 97.2 68 141/75 01/29 1532 78 131/67 01/29 1529 78 131/67 01/29 1416 96.0 76 145/77 01/29 1221 76 145/77 01/29 1210 76 145/77 Patient is alert, oriented, cooperative with the interview calm. Mood described as fairly good affect appropriate and reactive. Thought process organized. He denied any suicidal or homicidal ideation. No delusions. No hallucinations. Insight and judgment improved. A/P Patient is improving, tolerating detox. Continue with current medications Current Medications Sig/Rip Start time Last Medication Dose Route Stop Time Status Admin Acetaminophen 650 MG Q6P PRN 01/26 1030 AC PO Al Hydroxide/Mg 30 ML Q4-6 PRN PRN 01/26 1030 AC Hydroxide PO Baclofen 10 MG Q6P PRN 01/26 1645 AC 01/29 PO 0756 Buspirone HCl 15 MG Q6H PRN 01/28 1845 AC PO Buspirone HCl 15 MG 0800,01/27 2200 AC 01/30 PO 0852 Carbamazepine 200 MG 0800,01/27 2030 AC 01/30 PO 0852 Clonidine 0.1 MG 0800,1400,2200 01/28 2200 AC 01/30 PO 0852 Clonidine 0.1 MG Q8P PRN 01/26 1645 AC 01/28 PO 0055 Dicyclomine HCl 20 MG Q6P PRN 01/26 1645 AC 01/29 PO 0756 Gabapentin 300 MG 01/28 2200 AC 01/29 PO 01/30 2201 220 Gabapentin 300 MG Q4H PRN 01/28 1845 AC PO Lorazepam 0.5 MG 1200 01/31 1200 AC PO 01/31 1201 Lorazepam 0.5 MG 0800,01/30 08 AC 01/30 PO 01/30 2001 0851 Lorazepam 0.5 MG 0800,1300,1700,2200 01/29 0800 DC 01/29 PO 01/29 Lorazepam 2 MG Q2P PRN 01/26 1030 AC PO Lorazepam 1 MG Q2P PRN 01/26 1030 AC PO Magnesium Hydroxide 30 ML AT BEDTIME PRN 01/26 1030 AC PO Multivitamins 1 TAB DAILY 01/26 1021 01/30 PO 0852 Nicotine 14 MG 01/27 1045 AC 01/30 TOP 0851 Nicotine 2 MG Q2P PRN 01/26 1645 01/30 PO 0852 Ondansetron HCl 4 MG Q6H PRN 01/27 1430 AC 01/27 PO 1433 Paroxetine HCl 40 MG 0801/28 0800 AC 01/30 PO 0852 Quetiapine Fumarate 50 MG 01/28 220 01/29 PO 2208 Quetiapine Fumarate 50 MG AT BEDTIME NEED.. 01/29 2000 PO Continue to provide support and encouragement
--- NOTE | 2017-01-30 12:15 | NUR ---
PT IS QUIET, CALM, COOPERATIVE AND OVERALL COMPLIANT AND APPROPRIATE WITH PEERS AND STAFF. NO ISSUES OR COMPLAINTS REPORTED OR OBSERVED, RESTING FOR MOST PART OF THE MORNING, MOOD STABLE WITH FULL RANGE AFFECT, DENIED THOUGHTS OF SELF HARM.
--- NOTE | 2017-01-30 20:47 | NUR ---
PT HAS BEEN QUITE, BUT SHOWS A FULL RANGE AFFECT. HE HAS BEEN PLEASANT AND SOCIAL WITH STAFF AND PEERS.
[2017-01-31] VITALS (8 sets, daily range): BP systolic 123–141; BP diastolic 65–73
--- NOTE | 2017-01-31 05:02 | NUR ---
SLEPT WELL WITH NO COMPLAINTS OFFERED.
--- NOTE | 2017-01-31 13:25 | CP SOUTH PROGRESS NOTE PSYCH ---
Psych (Inpt) Progress Note Progress Note Include the following elements, when applicable: Involvement in the active treatment of the patient with behavioral observations of the patient and the patient's response to the treatment. Review of the ongoing treatment process in the context of the treatment plan. Indication of how multi-disciplinary staff members are carrying out the treatment plan. Plans for future interventions and recommendations for revision of the treatment plan. Liaison with other physicians/providers. Progress Note: PSYCHIATRIST NOTE, 01/31/2017: I discussed this patient's progress to date, current mental status, treatment and discharge planning with staff team today in the daily morning ITTM and also met with him again myself in individual session. Serum carbamazepine level this morning was only 4.lmcg/ml; however, patient refused to accept his AM dose of same today, saying he thought he was experiencing side effects from it. He has also been going through alcohol detox with last tapering dose of Ativan ( 0.5mg) at noontime today and is still receiving clonidine, 0.1mg 3x/day; I will begin taper by eliminating the mid-afternoon dose as of today. Patient has taken no PRN's of Seroquel, Neurontin or BuSpar and required no PRN doses of Ativan for significent elevations in CIWA/pulse rate. Patient agreed to taper away clonidine by last 0.1mg dose tomorrow morning, 02/01/2017. I will also discontinue the Tegretol at this point; patient finds that he feels nauseated after taking it. Patient is still positive about going to a sober house and to a detention in [place] in the meantime if there is a delay in his getting a bed; in either case, he will be living in [place] ("closer to work") and, therefore , will require aftercare there. Currently, patient reports his mood improving everyday over this past weekend and denies any suicidal ideation/suicidality. He is resigned to whatever happened with his relationship with longtime girlfriend, knows that even if things eventually work out it will take time for trust to be re-established strongly. Patient is looking forward to getting back to work; he is reluctant to telephone is boss while he is still here but plans to communicate with him right after discharge which looks to likely be tomorrow.
--- NOTE | 2017-01-31 14:19 | NUR ---
PT IS COMPLIANT AND COOPERATIVE. MOOD IS STABLE WITH A CONSTRICTED AFFECT. PT DENIES SI AT THIS TIME, NO COMPLAINTS OFFERED. PT VASCILLATES BETWEEN SLEEPING IN BED AND BEING OUT IN THE COMMUNITY. PT INTERACTING WELL WITH OTHERS WHEN OOB. PT IS ATTENDING GROUPS. VITALS ARE STABLE, APPETITE IS GOOD.
--- NOTE | 2017-01-31 15:02 | SOCIAL WORKER PROG NOTE PSYCH ---
Social Work Progress Note Progress Note Alonzo said he had a good weekend. He talked about leaving tomorrow and going to a custodial on [facility] in [place]. He has stayed there before. He continues to be focused on this upcoming job that he is anticipating getting. He said his girlfriend would be willing to drive him to and from work. He also said she will be available to pick him up tomorrow morning. I asked if things are working out between the two of them? He said that they are together, but her parents don't want her to be and she is staying with them still. They are seeing eachother without her parents knowledge. I asked if he would be willing to follow up at [facility] in [place]? He said he would. I shared that their walk in [facility] are Tuesdays from 9-1:30pm. Asked if he could get to that appt. right after discharge from here? He said he would. Asked if he would be following up with AA or NA meetings? He said if he had time, due to work. I continue to emphasized that his recovery from drugs and alcohol are extremely important in the larger picture of his life. It does not seem to be a priority for him in this bond writer's opinion. He told me that he will be starting Antabuse when he leaves. I reminded him that it is always best to confer with a doctor when starting new medications. He stated this was a bottle that he and his girlfriend had not used. He has been on it before. He also indicated that he had the appt. with the prescriber in [place] on 02/10 for Suboxone. He couldn't remember the person's name that he will be seeing. He chose to stop the Tegretol that he was being prescribed, due to feeling sick on it. Stated his stomach hurt and his head felt "fuzzy". Overall mood was good. Denies any current SI. Plan to discharge at 11am.
--- NOTE | 2017-01-31 18:07 | NUR ---
PT IS CALM, COOPERATIVE WITH STAFF AND PEERS, AND COMPLIANT WITH UNIT RULES. OFTEN IN [place], INTERACTING WELL WITH OTHERS. MOOD IS STABLE, AFFECT IS EUTHYMIC TO FULL RANGE, COMMUNICATIONIS ORGANIZED AND APPEARS NORMAL IN ALL RESPECTS, AND APPETITE IS NORMAL. PT DENIES SI AT THIS TIME.
--- NOTE | 2017-02-01 03:41 | NUR ---
SLEPT WELL OVERNIGHT,WITH NO COMPLAINTS OFFERED.
--- NOTE | 2017-02-01 07:19 | CP SOUTH PROGRESS NOTE PSYCH ---
Psych (Inpt) Progress Note Progress Note Include the following elements, when applicable: Involvement in the active treatment of the patient with behavioral observations of the patient and the patient's response to the treatment. Review of the ongoing treatment process in the context of the treatment plan. Indication of how multi-disciplinary staff members are carrying out the treatment plan. Plans for future interventions and recommendations for revision of the treatment plan. Liaison with other physicians/providers. Progress Note: PSYCHIATRIST NOTE (DISCHARGE), 02/01/2017: I discussed this patient's progress to date, current mental status, treatment and discharge plans with staff team today in the daily morning ITTM and met with him again myself in individual session prior to discharging him to walk-in intake with [facility] in [place], [place] and temporary residence with [facility] "overflow bed" also in [place]. Patient is sleeping better, less anxious, actually feeling better since stopping Tegretol yesterday and considers himself ready for discharge today, shows no evidence of suicidal or homicidal ideation,plans intent or impulses and is well aware of his safety plan should he every in future come to believe himself at acute risk of self-harm or harming others. While he still wants very much to have a chance to get back together with his girlfriend of 10 years, he fully understands that total abstinence and at least early recovery from all substances of abuse is a precondition to any possibility of that ever happening; girlfriend is picking him up this morning to bring him to [facility] snf. (for complete listing of all medictions prescribed at time of discharge, dosage, scheduling and indications, see Discharge Medications section of the discharge summary for this admission; patient and I spoke at length about smoking cessation again today; I encouraged him to continue to utilize the nicotine patch, 14mg topical OTC to help reduce cravings for cigarettes/tobacco; patient also received an appoinmtnet card for the next [facility] scheduled on 02/09/2017 at 4pm, facilitated by Francisca Mccoy LCSW)
--- NOTE | 2017-02-01 07:20 | DISCHARGE SUMMARY REPORT-PSYCH ---
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 was on methadone maintenance at 70mg/day--"cold turkeyed" Alcohol Use Disorder Alcohol Intoxication and withdrawal/ detoxification Crack Cocaine Use Disordr Cocaine Intoxication Hospital Course Significant Lab Findings: glucose = 134; BUN = 7; anion gap = 20; RBC = 4.52, MCV = 95.4; CARLOS = 207.0; urine for drugs of abuse--positive for cocaine (greater than 1,000.00ng/ml); carbamazepine level = 4.1mcg/ml (for complete listing of all normal range laboratory date from this admission, see the electronic medical record) Course Complications: none Consultations: patient was seen for an admission medical H&P and followed medically during this admission by Aj Cronin M.D. Allergies: Coded Allergies: meperidine (From DEMEROL) (Mild, FLUSHING 11/26/16) Hospital Course/TX Response: (see also, all initial/admission assessments and daily M.D./LABEL FUSER TENDER and SALVAGE MEND WORKER progress notes all of which are contained in the electronic medical record) Patient appeared to be suffering recurrence or relapse of depressive mood disorder contributed to significantly by polysubstance abuse/dependence/ intoxication, as well as significant life stressors, primarily 10-year relationship in serious jeopardy, joblessness and homelessness. He noted that during a previous inpatient detox prescription of Trileptal had seemed to be quite helpful "for two days." Patient has been heavily abusing alcohol for most of the past two months but urine tox screen though showing cocaine intoxcation was negative for benzodiazepines (had been intoxicated with benzos. at the time of 11/2016 admission here). His abrupt self-discontinuation of methadone (so he "could go [id number] on a job") was impulsive and caused much disruption, including the loss of the job he had stopped the methadone for; he seems to still be feeling the effects of this, plus discontinuing the Suboxone "from the street" he had been taking in an effort to ease withdrawal (also ill-advised and now likely with its own "detox" symptoms). 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 Patient denies any past experience with A.A./N.A. despite his long history of polydrug abuse and unhappy consequences thereof; he needs to get involved and acquire a temporary sponsor (or two) at his earliest opportunity. Patient was discharged to walk-in intake with [facility] in [place], [place] and temporary residence with [facility] "overflow bed" also in [place]. Patient is sleeping better, less anxious, actually feeling better since stopping Tegretol yesterday and considers himself ready for discharge today, shows no evidence of suicidal or homicidal ideation,plans intent or impulses and is well aware of his safety plan should he every in future come to believe himself at acute risk of self-harm or harming others. While he still wants very much to have a chance to get back together with his girlfriend of 10 years, he fully understands that total abstinence and at least early recovery from all substances of abuse is a precondition to any possibility of that ever happening; girlfriend is picking him up this morning to bring him to [facility] penitentiary. (for complete listing of all medictions prescribed at time of discharge, dosage, scheduling and indications, see Discharge Medications section of the discharge summary for this admission; patient and I spoke at length about smoking cessation again today; I encouraged him to continue to utilize the nicotine patch, 14mg topical OTC to help reduce cravings for cigarettes/tobacco; patient also received an appoinmtnet card for the next [facility] scheduled on 02/09/2017 at 4pm, facilitated by Francisca Mccoy LCSW) Discharge HBIPS - Tobacco Use Treatment Offered Post DC Medications Offered: Script Given-See Med List Post DC Tobacco Treatment Plan: [facility] Tx Pgm - EtOH/Drug Use D/O Treatment Offered Post DC Medications Offered: Ref Med EtOH/Drug Use D/O (will consider Antebuse later) Post DC EtOH/SubAbuse TX Plan: Other SubAbuse/Dual Pgm (intake [facility]-) Metabolic Screening - Screen if on a Neuroleptic Medication - Metabolic screening should include: - Blood Pressure, BMI, Glucose or Hgb A1c, & a - Lipid profile from within the past 365 days. Metabolic Screening () Not Applicable, patient not on a neuroleptic. OR ([X]) Patient on a neuroleptic(s) . Enter below results for Glucose or Hemoglobin A1C, and lipid panel if obtained during the last 365 days. BMI: 29.000 Blood Pressure: 144/76 Laboratory Results (If applicable): [X] glucose = 134 (drawn on 01/25/2017) cholesterol = 148 (all drawn on 11/29/2016) triglucerides = 103 HDL = 42 LDL = 86 Discharge Instructions General Discharge Information Discharge Medications: I called into the [facility] ([phone]) in [place], [place] on day of discharge: Paxil, 40mg: i tab daily in AM (40mg/day); #30 with no refill (anti- depressant) BuSpar, 15mg: i tab 2x/day (30mg daily); #60 with no refill (anti-anxiety) Seroquel, 100mg: i tab nightly at HS (100mg/night); #30 with no refill ( clarify and reduce racing thoughts) I have also encouraged patient to continue to utilize the nicotine patch, 14mg topical OTC to help reduce craving for cigarettes/tobacco and he has been given an appointment card for the next [place] [facility] scheduled for at 4pm, facilitated by Francisca Mccoy LCSW Multiple Neuroleptics: ([X]) Not Applicable OR Document below three failed attempts at monotherapy, or a plan to taper to monotherapy, or augmentation of Clozapine. () Patient's Diet: heart healthy Patient's Activity: without restrictions DC Disposition: to [facility], [place], [place] (and from there to [facility]) Recommendations: Following an interval of outpatient stabilization I would recommend attempt be made to gradually taper current low dose Seroquel, possibly in favor of a primary mood stabilizer. Referred To: Patient was referred to walk-in intake at [facility], on 02/08/2017, 9am-1:30pm; he was also encouraged to regularly attend local A.A./N.A. meetings and communicate frequently with a sponsor; he was also given an appointment card for the next [place] [facility] scheduled for 02/09/2017 at 4pm, facilitated by Francisca Mccoy LCSW. Copies To: Joel NEGRETE; SUPRIYA LACEY,CARLOS
[2017-02-01 07:40] VITALS: BP 144/76
[2017-02-01 07:55] VITALS: BP 144/76
--- NOTE | 2017-02-01 08:12 | NUR ---
PT IS SCHEDULED FOR DISCHARGE TO [facility] TODAY. HE STATES HE WILL FOLLOW UP WITH [facility]. HE REPORTS AND DEMONSTRATES IMPROVEMENT IN HIS MOOD AND ABILITY TO FUNCTION. HE DENIES ANY THOUGHTS OF SUICIDE OR SELF HARM.HE VERBALIZES A STRONG DESIRE TO LEAD A CLEAN AND SOBER LIFESTYLE. PT IS GIVEN EDUCATION R/T MANAGING HIS MOOD DISORDDER AND ON SUICIDE PREVENTION
[2017-02-01 08:32] VITALS: BP 144/76
--- NOTE | 2017-02-01 11:40 | SOCIAL WORKER PROG NOTE PSYCH ---
Social Work Progress Note Progress Note Fernando got ready for discharge this morning. His girlfriend came to pick him up. He is planning to go the [facility] in [place]. Joshua goldberg called in to [facility].
== END 2017-02-01 11:30 | DRG 754 ==
LOC: ERH 19:33 → CP SOUTH 01-26 08:50 → ERHI 01-26 08:50 → ENTRNSPT 01-26 11:23 → ENRESERV 01-26 11:30 → EDTRNSPTTYP 01-26 11:30 → EDTRNSPT 01-26 11:30 → CP SOUTH 01-26 11:42 → CMPTRNSPT 01-26 12:28 → CP SOUTH 01-26 18:30
PROVIDERS: Emergency Medicine; ADMIT Psychiatry & Neurology Psychiatry
DX: F32.9 Major depressive disorder, single episode, unspecified (principal); R45.851 Suicidal ideations; F11.20 Opioid dependence, uncomplicated; F10.239 Alcohol dependence with withdrawal, unspecified; F14.90 Cocaine use, unspecified, uncomplicated
CPT/HCPCS: 36415; 80305; 80307; 93005; 93010; G0480; J3101; J3490